=== PATIENT | male | born 1955 | race Caucasian/White ===

== ENCOUNTER → 2016-08-30 | Outpatient (CLI) | payer OTHER, MEDICAID ==
[2012-12-16 15:54] VITALS: BP 112/78
--- NOTE | 2016-08-30 10:39 | RAD ---
HISTORY: Bilateral hip pain Study: Bilateral hips two views each, AP pelvis Comparison: None Findings: the bones are osteopenic. The pelvic bones and SI joints are intact. The hip joints are intact and without erosive changes. There is mild bilateral joint space narrowing likely degenerative in origin . No fracture, lytic, or blastic lesion is identified. IMPRESSION: Mild degenerative joint space narrowing in the hips bilaterally Osteopenia Reported By:
--- NOTE | 2016-08-30 10:41 | RAD ---
HISTORY: Chronic back pain Study: Thoracic spine three view Comparison: None Findings: The bones are osteopenic. The alignment is normal. The vertebral bodies are of average height with t he exception of mild loss of height in T11 age indeterminate. The disc spaces are preserved. The ped icles are intact. The paraspinous soft tissues are normal. IMPRESSION: Osteopenia Mild loss of height in T11 age indeterminate Reported By:
--- NOTE | 2016-08-30 11:01 | RAD ---
HISTORY: Chronic back pain Study: Five views of the lumbar spine Comparison: None Findings: Images demonstrate a central compression deformity of the T12 vertebral body. Otherwise the lumbar v ertebral body heights are relatively maintained. Degenerative facet changes are seen throughout the lumbar spine. Intervertebral disc space narrowing is noted at L5/S1. Minimal multilevel osteophytosi s is also noted. Atherosclerotic changes are seen within the visualized aorta. IMPRESSION: 1. Age-indeterminate compression deformity T12. 2. Multilevel degenerative changes noted above. Reported By:
== END ==
LOC: RAD 09:11
PROVIDERS: ATTEND Family Medicine
DX: G89.4 Chronic pain syndrome (principal); M54.89 Other dorsalgia; M25.551 Pain in right hip; M25.552 Pain in left hip
CPT/HCPCS: 72072; 72110; 73521

== ENCOUNTER → 2017-01-03 | Outpatient (CLI) | payer OTHER, MEDICAID ==
[2012-12-16 15:54] VITALS: BP 112/78
[2017-01-03 15:54] LABS: BASOPHILS # (AUTO) 0.1 X10^3/uL (0.0-0.1); BASOPHILS % (AUTO) 0.9 % (0.2-1.0); EOSINOPHILS # (AUTO) 0.1 x10^3/uL (0.0-0.2); HEMATOCRIT 53.1 % (42.0-54.0); HEMOGLOBIN 18.3 g/dL (13.5-18.0); LYMPHOCYTES # (AUTO) 2.9 X10^3/uL (1.3-2.9); LYMPHOCYTES % (AUTO) 28.6 % (21.0-51.0); MEAN CORPUSCULAR HEMOGLOBIN 30.4 pg (27.0-34.0); MEAN CORPUSCULAR HGB CONC 34.4 g/dL (33.0-35.0); MEAN CORPUSCULAR VOLUME 88.3 fL (80.0-100.0); MONOCYTES # (AUTO) 0.7 x10^3/uL (0.3-0.8); MONOCYTES % (AUTO) 6.4 % (0.0-13.0); NEUTROPHILS # (AUTO) 6.5 x10^3/uL (2.2-4.8); NEUTROPHILS % (AUTO) 63.1 % (42.0-75.0); PLATELET COUNT 229 X10^3/uL (150.0-450.0); RED BLOOD COUNT 6.02 X10^6/uL (4.7-6.0); RED CELL DISTRIBUTION WIDTH 14.4 % (11.6-16.5); WHITE BLOOD COUNT 10.2 X10^3/uL (3.6-10.0)
[2017-01-03 16:09] LABS: ALANINE AMINOTRANSFERASE 146 Units/L (12-78); ALBUMIN 3.4 g/dL (3.4-5.0); ALKALINE PHOSPHATASE 109 Units/L (46-116); ASPARTATE AMINO TRANSFERASE 100 Units/L (15-37); BILIRUBIN,DIRECT 0.11 mg/dL (0-0.2); BLOOD UREA NITROGEN 11 mg/dL (7-18); CARBON DIOXIDE 32.4 mmol/L (21-32); CHLORIDE 101 mmol/L (98-107); COR NA(FOR HYPERGLY) 139 mmol/L (136-145); CREATININE 0.86 mg/dL (0.70-1.30); GLUCOSE 120 mg/dL (65-99); SODIUM 139 mmol/L (136-145); TOTAL PROTEIN 7.6 g/dL (6.4-8.2); eGFR BLACK RACES > 60 (>60); eGFR NON BLACK RACES > 60 (>60)
[2017-01-07 21:38] LABS: HEPATITIS A ANTIBODY IGM Negative (Negative)
[2017-01-09 06:18] LABS: HEPATITIS B CORE IGM Negative (Negative); HEPATITIS B SURFACE ANTIGEN Negative (Negative)
[2017-01-09 06:19] LABS: HCV VIRAL LOG 6.4 log IU
== END ==
LOC: LAB 15:30
PROVIDERS: ATTEND Internal Medicine Gastroenterology
DX: B18.2 Chronic viral hepatitis C (principal)
CPT/HCPCS: 36415; 80048; 80074; 80076; 85025; 87522; 87902

== ENCOUNTER 2017-01-26 11:27 | Day surgery (SDC) | payer OTHER, MEDICAID ==
[2017-01-26] MEDS ORDERED: D5 LR 1000 ML 1,000 ML IV ONE (11:39)
[2017-01-26] MEDS ORDERED: DIPRIVAN VIAL 20 ML ONE (12:37)
[2017-01-26 13:30] VITALS: BP 100/60
== END 2017-01-26 13:15 | disposition home or self-care (01) ==
LOC: SURG1 11:27
PROVIDERS: ATTEND Internal Medicine Gastroenterology
PROC: 0DJ08ZZ Inspection of Upper Intestinal Tract, Via Natural or Artificial Opening Endoscopic (ICD-10-PCS; principal; 2017-01-26 15:45)
PROC: 0DB68ZX Excision of Stomach, Via Natural or Artificial Opening Endoscopic, Diagnostic (ICD-10-PCS; principal; 2017-01-26 15:45)
DX: Z87.19 Personal history of other diseases of the digestive system (principal); B18.2 Chronic viral hepatitis C; K21.9 Gastro-esophageal reflux disease without esophagitis; R11.0 Nausea; R10.13 Epigastric pain; K20.8 Other esophagitis; K29.60 Other gastritis without bleeding; R10.84 Generalized abdominal pain
CPT/HCPCS: A4217; J3490; J7120

== ENCOUNTER 2017-02-02 09:47 | Day surgery (SDC) | payer OTHER, MEDICAID ==
[2017-02-02] MEDS ORDERED: D5 LR 1000 ML 1,000 ML IV ONE (10:16)
[2017-02-02] MEDS ORDERED: DIPRIVAN VIAL 20 ML ONE (12:10)
[2017-02-02] MEDS ORDERED: DIPRIVAN VIAL 10 ML ONE (12:29)
[2017-02-02 13:08] VITALS: BP 114/65
== END 2017-02-02 13:07 | disposition home or self-care (01) ==
LOC: SURG1 09:47
PROVIDERS: ATTEND Internal Medicine Gastroenterology
PROC: 0DJD8ZZ Inspection of Lower Intestinal Tract, Via Natural or Artificial Opening Endoscopic (ICD-10-PCS; principal; 2017-02-02 14:45)
PROC: 0DBE8ZX Excision of Large Intestine, Via Natural or Artificial Opening Endoscopic, Diagnostic (ICD-10-PCS; principal; 2017-02-02 14:45)
PROC: 0DBL8ZX Excision of Transverse Colon, Via Natural or Artificial Opening Endoscopic, Diagnostic (ICD-10-PCS; principal; 2017-02-02 14:45)
PROC: 0DBK8ZX Excision of Ascending Colon, Via Natural or Artificial Opening Endoscopic, Diagnostic (ICD-10-PCS; principal; 2017-02-02 14:45)
PROC: 0DBM8ZX Excision of Descending Colon, Via Natural or Artificial Opening Endoscopic, Diagnostic (ICD-10-PCS; principal; 2017-02-02 14:45)
PROC: 0DBP8ZX Excision of Rectum, Via Natural or Artificial Opening Endoscopic, Diagnostic (ICD-10-PCS; principal; 2017-02-02 14:45)
DX: Z12.11 Encounter for screening for malignant neoplasm of colon (principal); K63.5 Polyp of colon; K64.0 First degree hemorrhoids; D12.4 Benign neoplasm of descending colon; D12.3 Benign neoplasm of transverse colon; D12.6 Benign neoplasm of colon, unspecified; D12.2 Benign neoplasm of ascending colon
CPT/HCPCS: A4217; J3490; J7120

== ENCOUNTER 2017-02-08 10:34 | Outpatient (CLI) | payer OTHER, MEDICAID ==
[2017-02-08 11:08] LABS: BASOPHILS # (AUTO) 0.1 X10^3/uL (0.0-0.1); BASOPHILS % (AUTO) 0.9 % (0.2-1.0); EOSINOPHILS % (AUTO) 0.4 % (0.9-2.9); HEMATOCRIT 52.1 % (42.0-54.0); HEMOGLOBIN 18.2 g/dL (13.5-18.0); LYMPHOCYTES # (AUTO) 2.8 X10^3/uL (1.3-2.9); MEAN CORPUSCULAR HEMOGLOBIN 31.1 pg (27.0-34.0); MEAN CORPUSCULAR HGB CONC 34.9 g/dL (33.0-35.0); MEAN CORPUSCULAR VOLUME 89.1 fL (80.0-100.0); MEAN PLATELET VOLUME 8.2 fL (7.4-11.0); MONOCYTES # (AUTO) 0.5 x10^3/uL (0.3-0.8); MONOCYTES % (AUTO) 4.6 % (0.0-13.0); NEUTROPHILS # (AUTO) 6.7 x10^3/uL (2.2-4.8); NEUTROPHILS % (AUTO) 66.1 % (42.0-75.0); PLATELET COUNT 268 X10^3/uL (150.0-450.0); RED BLOOD COUNT 5.85 X10^6/uL (4.7-6.0); RED CELL DISTRIBUTION WIDTH 14.3 % (11.6-16.5); WHITE BLOOD COUNT 10.1 X10^3/uL (3.6-10.0)
[2017-02-08] MEDS ORDERED: NS 500 ML IV 500 ML IV ONE (11:24)
[2017-02-08 11:26] LABS: ALBUMIN 3.6 g/dL (3.4-5.0); ASPARTATE AMINO TRANSFERASE 81 Units/L (15-37); BLOOD UREA NITROGEN 7 mg/dL (7-18); CALCIUM 9.5 mg/dL (8.5-10.1); CHLORIDE 103 mmol/L (98-107); CREATININE 0.94 mg/dL (0.70-1.30); GLUCOSE 107 mg/dL (65-99); SODIUM 138 mmol/L (136-145); eGFR BLACK RACES > 60 (>60); eGFR NON BLACK RACES > 60 (>60)
--- NOTE | 2017-02-08 11:26 | US ---
Indication: Hepatitis-C. Exam: Liver ultrasound . Technique: Transverse and longitudinal grayscale and color Doppler images were obtained of the liver . Findings: The liver is normal size and echogenicity. No focal lesion is seen. There is hepatopetal fl ow in the portal vein and visualized hepatic veins and IVC are unremarkable. The common bile duct mayuri sures 4 mm. There is no intrahepatic ductal dilatation. The visualized portions of the gallbladder an d right kidney are grossly unremarkable. Impression: No abnormality seen. Reported By:
[2017-02-08 11:38] LABS: ALANINE AMINOTRANSFERASE 98 Units/L (12-78); ALKALINE PHOSPHATASE 81 Units/L (46-116); CARBON DIOXIDE 31.5 mmol/L (21-32); TOTAL PROTEIN 7.9 g/dL (6.4-8.2)
[2017-02-08 14:09] VITALS: BP 125/73
--- NOTE | 2017-02-09 09:39 | CT ---
CT guided liver biopsy Indication: Chronic hepatitis-C. Evaluate liver. Technique: After discussion of risks and benefits, consent was obtained. Time-out was performed. Davida salvador images were then performed through the abdomen and pelvis with a grade in position. Coronal and s agittal reformats provided. A armani was placed on the skin. The patient is prepped and draped in usual sterile fashion. Local anesthetic applied . Anesthesia was present for conscious sedation. Monopty 1 9 gauge 11 mm core specimens were obtained in the left lobe of the liver under CT fluoroscopic guidan ce. 3 core specimens were obtained and submitted to pathology. Patient tolerated procedure well. Foll owup helical imaging was obtained through the liver. Findings: Limited images through the chest show COPD change and Coronary artery calcifications. Revie w of bone windows shows spine degenerative change without destructive osseous lesion. Abdomen: The spleen, pancreas, adrenal glands, and right kidney are normal. There is exophytic small hyperdense left renal lesion on axial image 45, possibly a hyperdense cyst but technically indetermin ate. Vascular plaque noted. Liver is borderline fatty, and borderline cirrhotic in configuration with enlarged caudate to right lobe ratio. No large lesion seen within limits of a noncontrast study. Sma ll bowel and colon show no acute abnormality. Small fat containing umbilical hernia noted. Gallbladde r is collapsed. Pelvis: Urinary bladder and rectum are normal. Prostate gland shows no acute abnormality. Appendix not seen without right lower quadrant inflammatory process noted. Postprocedural images demonstrate no large hematoma. Impression: 1. Successful liver biopsy under CT guidance without complication. 2. Borderline cirrhotic/fatty liver as described above. 3. Left renal hyperdensity is indeterminate technically, and should be followed up with ultrasound to exclude neoplasia. Reported By:
== END 2017-02-08 15:00 | disposition home or self-care (01) ==
LOC: RAD 10:34
PROVIDERS: ATTEND Internal Medicine Gastroenterology
PROC: 0FB03ZX Excision of Liver, Percutaneous Approach, Diagnostic (ICD-10-PCS; principal; 2017-02-08)
DX: B18.2 Chronic viral hepatitis C (principal); E78.00 Pure hypercholesterolemia, unspecified; M13.89 Other specified arthritis, multiple sites
CPT/HCPCS: 36415; 76705; 77012; 80053; 85025; 85610; 85730; A4222

== ENCOUNTER → 2017-05-02 | Outpatient (CLI) | payer OTHER, MEDICAID ==
[2017-05-02 12:45] LABS: BASOPHILS # (AUTO) 0.1 X10^3/uL (0.0-0.1); BASOPHILS % (AUTO) 0.9 % (0.2-1.0); EOSINOPHILS # (AUTO) 0.1 x10^3/uL (0.0-0.2); HEMATOCRIT 55.2 % (42.0-54.0); HEMOGLOBIN 18.9 g/dL (13.5-18.0); LYMPHOCYTES # (AUTO) 3.1 X10^3/uL (1.3-2.9); MEAN CORPUSCULAR HEMOGLOBIN 30.2 pg (27.0-34.0); MEAN CORPUSCULAR HGB CONC 34.3 g/dL (33.0-35.0); MEAN CORPUSCULAR VOLUME 88.1 fL (80.0-100.0); MEAN PLATELET VOLUME 7.8 fL (7.4-11.0); MONOCYTES # (AUTO) 0.7 x10^3/uL (0.3-0.8); MONOCYTES % (AUTO) 6.1 % (0.0-13.0); PLATELET COUNT 252 X10^3/uL (150.0-450.0); RED BLOOD COUNT 6.27 X10^6/uL (4.7-6.0); RED CELL DISTRIBUTION WIDTH 13.3 % (11.6-16.5); WHITE BLOOD COUNT 10.9 X10^3/uL (3.6-10.0)
[2017-05-02 12:57] LABS: BILIRUBIN,URINE NEGATIVE (NEGATIVE); BLOOD/HEMOGLOBIN,URINE 1+ (NEGATIVE); GLUCOSE, URINE NEGATIVE (NEGATIVE); KETONES,URINE NEGATIVE (NEGATIVE); LEUKOCYTE ESTERASE ,URINE 1+ (NEGATIVE); NITRITES,URINE NEGATIVE (NEGATIVE); PROTEIN,URINE NEGATIVE (NEGATIVE); UROBILINOGEN,URINE 1+ (NORMAL)
[2017-05-02 13:02] LABS: APPEARANCE,URINE CLEAR (CLEAR); BACTERIA,URINE NEGATIVE /HPF (NEGATIVE); COLOR,URINE YELLOW (YELLOW); RBC,URINE 0-2 /HPF (NEGATIVE); SQUAMOUS EPITHELIAL CELL,UR NEGATIVE /HPF (NEGATIVE)
[2017-05-02 13:03] LABS: CREATININE,URINE 163.62 mg/dL (40-278); MICROALBUM/CREATININE RATIO,UR 4 mg/g cre (0-29); MICROALBUMIN,URINE 6.8 mg/L
[2017-05-02 13:34] LABS: TOTAL PSA 0.87 ng/mL (0.13-4.0)
[2017-05-02 14:53] LABS: ALANINE AMINOTRANSFERASE 35 Units/L (12-78); ALBUMIN 3.9 g/dL (3.4-5.0); ALKALINE PHOSPHATASE 105 Units/L (46-116); ASPARTATE AMINO TRANSFERASE 34 Units/L (15-37); BILIRUBIN,DIRECT 0.13 mg/dL (0-0.2); BLOOD UREA NITROGEN 4 mg/dL (7-18); CHLORIDE 98 mmol/L (98-107); CHOL/HDL RATIO 2.2 (0.0-5.0); CHOLESTEROL 131 mg/dL (0-200); CREATININE 0.94 mg/dL (0.70-1.30); FREE T4 (FREE THYROXINE) 1.32 ng/dL (0.76-1.46); HDL CHOLESTEROL 59 mg/dL (40-60); MAGNESIUM 2.1 mg/dL (1.7-2.9); SODIUM 136 mmol/L (136-145); TOTAL PROTEIN 8.4 g/dL (6.4-8.2); URIC ACID 7.3 mg/dL (3.5-7.2); eGFR BLACK RACES > 60 (>60); eGFR NON BLACK RACES > 60 (>60)
[2017-05-02 23:14] LABS: CARBON DIOXIDE 26.9 mmol/L (21-32)
[2017-05-03 00:08] LABS: CALCIUM 10.1 mg/dL (8.5-10.1); TRIGLYCERIDES 103 mg/dL (0-150)
== END ==
LOC: LAB 11:57
PROVIDERS: ATTEND Internal Medicine Gastroenterology
DX: B18.2 Chronic viral hepatitis C (principal); G47.09 Other insomnia; G89.4 Chronic pain syndrome; F41.8 Other specified anxiety disorders; E78.4 Other hyperlipidemia; K21.9 Gastro-esophageal reflux disease without esophagitis
CPT/HCPCS: 36415; 80048; 80061; 80076; 81001; 82043; 82607; 82746; 83735; 84153; 84439; 84443; 84550; 85025

== ENCOUNTER 2017-05-12 17:54 | Emergency (ER) | payer OTHER, MEDICAID ==
[2017-05-12 18:04] VITALS: BP 119/84; BMI 22.6
--- NOTE | 2017-05-12 18:14 | DR.GENAD ---
HPI - PCP Primary Care Physician: ping - Complaint/Symptoms Chief Complaint Doctors Comments: Patient admits to heart burn for one day, denies history of cardiopulmonary disease Chief Complaint:: pt states" i had heartburn the other night and i'm still hurting from it my doctor was suppose to call me in some med but she didn't" - Source History Provided: Patient - Mode of Arrival Mode of Arrival: Ambulatory - Timing Onset of Chief Complaint: 05/09/17 PMH - PMH Past Medical History: Yes Past Medical History: CVA, Liver Disease Past Medical History Comment: hep-c cirrhosis of the liver Past Surgical History: Yes Surgical History: Appendectomy Past Surgical History Comment: brain - Family History History of Family Medical Conditions: Yes Family Medical History: [place], Coronary Artery Disease - Social History Type of Tobacco Use: Cigarettes Alcohol Use: Occasionally Do you use any recreational Drugs:: No Lives With: Family Lives Where: Home - infectious screening In the last 2 months have you had wt loss of >10#?: NO Have you had fever, night sweats or hemotysis?: No Have you traveled outside the country in the last 6 months?: No Isolation: Standard ROS - Review of Systems Constitutional: negative: Diaphoresis Eyes: No Symptoms Reported ENTM: No Symptoms Reported Respiratoy: No Symptoms Reported Cardiovascular: No Symptoms Reported Gastrointestinal/Abdominal: No Symptoms Reported Genitourinary: No Symptoms Reported Neurological: No Symptoms Reported Musculoskeletal: No Symptoms Reported Integumentary: No Symptoms Reported Hematologic/Lymphatic: No Symptoms Reported Endocrine: No Symptoms Reported Psychiatric: No Symptoms Reported All Other Systems: Reviewed and Negative PE - Vital Signs Vitals: Temperature 97.2 F Pulse Rate 81 Respiratory Rate 18 Blood Pressure [Left Arm] 125/73 Blood Pressure [Right Radial 112/78 Artery] Blood Pressure 119/84 O2 Sat by Pulse Oximetry 97 - General Limitations: No Limitations General Appearance: Alert, In No Apparent Distress - Head Head Exam: Normal Inspection, Atraumatic - Eyes Eye exam: Normal Appearance, PERRL, EOMI - ENT ENT Exam: Normal Exam External Ear Exam: Normal External Inspection TM/Canal Exam: Bilateral Normal Nose Exam: Normal Nose Exam Mouth Exam: Normal Inspection, Trismus - Neck Neck Exam: Normal Inspection - Chest Chest Inspection: Normal Inspection - Respiratory Respiratory Exam: Normal Lung Sounds Bilat Respiratory Exam: Bilateral Clear to Auscultation - Cardiovascular Cardiovascular Exam: Regular Rate, Normal Rhythm - Abdominal Exam Abdominal Exam: Normal Inspection Abdominal Tenderness: negative: RUQ, RLQ, LUQ, LLQ, Epigastrium, Suprapubic, Diffuse, Mild, Moderate, Severe, Other - Extremities Extremities Exam: Normal Inspection, Full ROM - Back Back Exam: Normal Inspection, Full ROM - Neurologic Neurological Exam: Alert, Oriented X3, CN II-XII Intact - Psychiatric Psychiatric Exam: Normal Affect, Normal Mood - Skin Skin Exam: Warm, Dry, Intact ROR - Labs Reviewed Result Diagrams: 05/12/17 18:25 05/12/17 18:25 Laboratory: WBC 10.2 X10^3/uL (3.6-10.0) H 05/12/17 18:25 RBC 6.01 X10^6/uL (4.7-6.0) H 05/12/17 18:25 Hgb 18.2 g/dL (13.5-18.0) H 05/12/17 18:25 Hct 52.6 % (42.0-54.0) 05/12/17 18:25 MCV 87.6 fL (80.0-100.0) 05/12/17 18:25 MCH 30.3 pg (27.0-34.0) 05/12/17 18:25 MCHC 34.7 g/dL (33.0-35.0) 05/12/17 18:25 RDW 13.7 % (11.6-16.5) 05/12/17 18:25 Plt Count 268 X10^3/uL (150.0-450.0) 05/12/17 18:25 MPV 7.9 fL (7.4-11.0) 05/12/17 18:25 Neut % 48.5 % (42.0-75.0) 05/12/17 18:25 Lymph % 40.8 % (21.0-51.0) 05/12/17 18:25 [place] % 7.8 % (0.0-13.0) 05/12/17 18:25 Eos % 1.7 % (0.9-2.9) 05/12/17 18:25 Baso % 1.2 % (0.2-1.0) H 05/12/17 18:25 Neut # 4.9 x10^3/uL (2.2-4.8) H 05/12/17 18:25 Lymph # 4.2 X10^3/uL (1.3-2.9) H 05/12/17 18:25 [place] # 0.8 x10^3/uL (0.3-0.8) 05/12/17 18:25 Eos # 0.2 x10^3/uL (0.0-0.2) 05/12/17 18:25 Baso # 0.1 X10^3/uL (0.0-0.1) 05/12/17 18:25 Absolute Nucleated RBC 0.1 /100WBC 05/12/17 18:25 INR Target Range - 05/12/17 18:25 INR 0.98 (0.8-1.3) 05/12/17 18:25 PTT 26.8 SECONDS (22.9-36.5) 05/12/17 18:25 PTT Comment - 05/12/17 18:25 Sodium 138 mmol/L (136-145) 05/12/17 18:25 Corrected Sodium TNP 05/12/17 18:25 Potassium 4.3 mmol/L (3.5-5.1) 05/12/17 18:25 Chloride 101 mmol/L (98-107) 05/12/17 18:25 Carbon Dioxide 28.9 mmol/L (21-32) 05/12/17 18:25 BUN 8 mg/dL (7-18) 05/12/17 18:25 Creatinine 0.95 mg/dL (0.70-1.30) 05/12/17 18:25 Est GFR (MDRD) Af Amer > 60 (>60) 05/12/17 18:25 Est GFR (MDRD) Non-Af > 60 (>60) 05/12/17 18:25 Glucose 103 mg/dL (65-99) H 05/12/17 18:25 Calcium 9.3 mg/dL (8.5-10.1) 05/12/17 18:25 Corrected Calcium TNP 05/12/17 18:25 Magnesium 2.0 mg/dL (1.7-2.9) 05/12/17 18:25 Total Bilirubin 0.50 mg/dL (0.2-1.0) 05/12/17 18:25 AST 29 Units/L (15-37) 05/12/17 18:25 ALT 53 Units/L (12-78) 05/12/17 18:25 Alkaline Phosphatase 94 Units/L (46-116) 05/12/17 18:25 Total Protein 7.7 g/dL (6.4-8.2) 05/12/17 18:25 Albumin 3.8 g/dL (3.4-5.0) 05/12/17 18:25 Globulin 3.9 g/dL (2.5-4.5) 05/12/17 18:25 Albumin/Globulin Ratio 1.0 Ratio (1.1-2.1) L 05/12/17 18:25 - Diagnosis Discharge Problem: Heart burn - Discharge Plan Condition: Stable - Follow ups/Referrals Follow ups/Referrals: LEIF BARNHART [Primary Care Provider] - 3 days - Instructions
[2017-05-12 18:38] LABS: BASOPHILS # (AUTO) 0.1 X10^3/uL (0.0-0.1); BASOPHILS % (AUTO) 1.2 % (0.2-1.0); EOSINOPHILS # (AUTO) 0.2 x10^3/uL (0.0-0.2); EOSINOPHILS % (AUTO) 1.7 % (0.9-2.9); HEMATOCRIT 52.6 % (42.0-54.0); HEMOGLOBIN 18.2 g/dL (13.5-18.0); LYMPHOCYTES # (AUTO) 4.2 X10^3/uL (1.3-2.9); LYMPHOCYTES % (AUTO) 40.8 % (21.0-51.0); MEAN CORPUSCULAR HEMOGLOBIN 30.3 pg (27.0-34.0); MEAN CORPUSCULAR HGB CONC 34.7 g/dL (33.0-35.0); MEAN CORPUSCULAR VOLUME 87.6 fL (80.0-100.0); MEAN PLATELET VOLUME 7.9 fL (7.4-11.0); MONOCYTES # (AUTO) 0.8 x10^3/uL (0.3-0.8); MONOCYTES % (AUTO) 7.8 % (0.0-13.0); NEUTROPHILS # (AUTO) 4.9 x10^3/uL (2.2-4.8); NEUTROPHILS % (AUTO) 48.5 % (42.0-75.0); PLATELET COUNT 268 X10^3/uL (150.0-450.0); RED BLOOD COUNT 6.01 X10^6/uL (4.7-6.0); RED CELL DISTRIBUTION WIDTH 13.7 % (11.6-16.5); WHITE BLOOD COUNT 10.2 X10^3/uL (3.6-10.0)
[2017-05-12 18:44] LABS: ALANINE AMINOTRANSFERASE 53 Units/L (12-78); ALBUMIN 3.8 g/dL (3.4-5.0); ALKALINE PHOSPHATASE 94 Units/L (46-116); ASPARTATE AMINO TRANSFERASE 29 Units/L (15-37); BLOOD UREA NITROGEN 8 mg/dL (7-18); CALCIUM 9.3 mg/dL (8.5-10.1); CARBON DIOXIDE 28.9 mmol/L (21-32); CHLORIDE 101 mmol/L (98-107); CREATININE 0.95 mg/dL (0.70-1.30); SODIUM 138 mmol/L (136-145); TOTAL PROTEIN 7.7 g/dL (6.4-8.2); eGFR BLACK RACES > 60 (>60); eGFR NON BLACK RACES > 60 (>60)
[2017-05-12] MEDS ORDERED: NS 1000 ML 1,000 ML IV SCH (19:00)
[2017-05-12] MEDS ORDERED: NS 1000 ML 1,000 ML ONE (19:09)
[2017-05-12] MEDS ORDERED: LEVSIN/MAALOX/LIDOC VISC PO ONE (20:06)
--- NOTE | 2017-05-12 20:59 | RAD ---
HISTORY: Chest pain. Study: Portable chest. Comparison: Chest x-ray dated November 15, 2012. Findings: The trachea is midline. The cardiac silhouette is unremarkable. Chronic interstitial markings appear unchanged. No obvious focal consolidation, pleural effusion, or pneumothorax.. The bony thorax is unremarkable. IMPRESSION: No acute cardiopulmonary disease. Reported By:
== END 2017-05-12 20:29 | disposition home or self-care (01) ==
LOC: ER 18:08
DX: R12 Heartburn (principal)
CPT/HCPCS: 36415; 71010; 80053; 83735; 85025; 85610; 85730; 93005; 93010; 96365; 99283; A4222

== ENCOUNTER → 2017-06-13 | Outpatient (CLI) | payer OTHER, MEDICAID ==
[2017-06-13 15:32] LABS: BASOPHILS # (AUTO) 0.1 X10^3/uL (0.0-0.1); BASOPHILS % (AUTO) 0.6 % (0.2-1.0); EOSINOPHILS # (AUTO) 0.1 x10^3/uL (0.0-0.2); EOSINOPHILS % (AUTO) 0.8 % (0.9-2.9); HEMATOCRIT 53.3 % (42.0-54.0); HEMOGLOBIN 18.4 g/dL (13.5-18.0); LYMPHOCYTES # (AUTO) 3.8 X10^3/uL (1.3-2.9); LYMPHOCYTES % (AUTO) 33.7 % (21.0-51.0); MEAN CORPUSCULAR HGB CONC 34.6 g/dL (33.0-35.0); MEAN CORPUSCULAR VOLUME 86.7 fL (80.0-100.0); MEAN PLATELET VOLUME 8.4 fL (7.4-11.0); MONOCYTES # (AUTO) 0.8 x10^3/uL (0.3-0.8); MONOCYTES % (AUTO) 7.5 % (0.0-13.0); NEUTROPHILS # (AUTO) 6.4 x10^3/uL (2.2-4.8); NEUTROPHILS % (AUTO) 57.4 % (42.0-75.0); PLATELET COUNT 310 X10^3/uL (150.0-450.0); RED BLOOD COUNT 6.15 X10^6/uL (4.7-6.0); RED CELL DISTRIBUTION WIDTH 13.7 % (11.6-16.5); WHITE BLOOD COUNT 11.1 X10^3/uL (3.6-10.0)
[2017-06-13 16:03] LABS: ALBUMIN 3.5 g/dL (3.4-5.0); BILIRUBIN,DIRECT 0.08 mg/dL (0-0.2); TOTAL PROTEIN 8.1 g/dL (6.4-8.2)
== END ==
LOC: LAB 14:23
PROVIDERS: ATTEND Internal Medicine Gastroenterology
DX: B18.2 Chronic viral hepatitis C (principal)
CPT/HCPCS: 36415; 80076; 85025; 87522

== ENCOUNTER → 2017-07-12 | Outpatient (CLI) | payer OTHER, MEDICAID ==
[2017-07-12 12:17] LABS: BASOPHILS # (AUTO) 0.1 X10^3/uL (0.0-0.1); BASOPHILS % (AUTO) 0.8 % (0.2-1.0); EOSINOPHILS # (AUTO) 0.1 x10^3/uL (0.0-0.2); EOSINOPHILS % (AUTO) 1.1 % (0.9-2.9); HEMATOCRIT 53.9 % (42.0-54.0); HEMOGLOBIN 18.7 g/dL (13.5-18.0); LYMPHOCYTES # (AUTO) 4.2 X10^3/uL (1.3-2.9); LYMPHOCYTES % (AUTO) 41.1 % (21.0-51.0); MEAN CORPUSCULAR HGB CONC 34.6 g/dL (33.0-35.0); MEAN CORPUSCULAR VOLUME 86.6 fL (80.0-100.0); MEAN PLATELET VOLUME 7.8 fL (7.4-11.0); MONOCYTES # (AUTO) 0.9 x10^3/uL (0.3-0.8); MONOCYTES % (AUTO) 8.4 % (0.0-13.0); NEUTROPHILS % (AUTO) 48.6 % (42.0-75.0); PLATELET COUNT 303 X10^3/uL (150.0-450.0); RED BLOOD COUNT 6.23 X10^6/uL (4.7-6.0); RED CELL DISTRIBUTION WIDTH 13.7 % (11.6-16.5); WHITE BLOOD COUNT 10.3 X10^3/uL (3.6-10.0)
[2017-07-12 12:26] LABS: ALBUMIN 3.7 g/dL (3.4-5.0); BILIRUBIN,DIRECT 0.13 mg/dL (0-0.2); TOTAL PROTEIN 8.1 g/dL (6.4-8.2)
[2017-07-12 12:56] LABS: CRYPTOSPORIDIUM PARVUM ANTIGEN NEGATIVE (NEGATIVE); GIARDIA LAMBLIA ANTIGEN NEGATIVE (NEGATIVE); STOOL FOR WBC NEGATIVE (NEGATIVE)
[2017-07-18 06:57] LABS: HCV VIRAL LOG <1.2 log IU
== END ==
LOC: LAB 11:40
PROVIDERS: ATTEND Internal Medicine Gastroenterology
DX: B18.2 Chronic viral hepatitis C (principal); K59.1 Functional diarrhea
CPT/HCPCS: 36415; 80076; 82270; 82705; 83630; 85025; 87045; 87328; 87329; 87336; 87427; 87493; 87522; 87899

== ENCOUNTER 2019-12-05 13:54 | Observation (INO) ==
[2019-12-05 14:01] VITALS: BMI 27.9
[2019-12-05] MEDS ORDERED: ASPIRIN 81 MG CHEWTAB ONE (14:09)
[2019-12-05] MEDS ORDERED: ASPIRIN PO ONE (14:09)
--- NOTE | 2019-12-05 14:16 | DR.SOBA ---
HPI Time Seen Time Seen by Provider: 12/05/19 14:04 Primary Care Physician Primary Care Physician: DR LEIF BARNHART HPI Comment HPI Comment: SHOB and cough greater than baseline. Had an episode of BOV, weakness while outside in the heat today. COPD O2 dependent, s/p CVA, had MD 3 months ago and non-adherent to daily ASA. States chest pain is chronic, and points to his left nipple with a finger when localizing. Denies fever, chills. Complaints Chief Complaint:: PT C/O LOW BP AND SHORTNESS OF BREATH ASSOCIATED WITH SOME MILD LEFT SIDED CHEST PAIN RATED 4/10. PT NOTED TO HAVE WHEEZES BILATERALLY. RECEIVING NEB TX UPON ARRIVAL. EMS REPORTED STRIDOR PRIOR TO ARRIVAL. COVID-19 Coronavirus risk:travel/contact w/high risk person: No Has patient experienced Coronavirus symptoms: No Source History Provided: Patient and EMS Mode of Arrival Mode of Arrival: EMS Timing Onset of Chief Complaint: 12/05/19 PMH PMH Past Medical History: Yes Past Medical History: Anxiety, Arthritis, Asthma, COPD, Coronary Artery Disease, CVA, Depression, GERD, Liver Disease and MD Past Surgical History: Yes Surgical History: Angioplasty/Stents and Appendectomy Family History History of Family Medical Conditions: Yes Family Medical History: Diabetes Mellitus, Cancer, MD and Hypertension Social History Does patient currently use any type of tobacco product: Yes Have you used tobacco products in the last 12 months: No Type of Tobacco Use: Cigarettes Does any household member use tobacco: No Alcohol Use: None Do you use any recreational Drugs:: No Lives With: Family Lives Where: Home Travel Risk Coronavirus risk:travel/contact w/high risk person: No Has patient experienced Coronavirus symptoms: No Infectious screening In the last 2 months have you had wt loss of >10#?: NO Have you had fever, night sweats or hemotysis?: No Have you traveled outside the country in the last 6 months?: No Isolation: [place]/Negative Pressure ROS Review of Systems Constitutional: Weakness Eyes: No Symptoms Reported ENTM: No Symptoms Reported Respiratoy: See HPI Cardiovascular: See HPI Gastrointestinal/Abdominal: No Symptoms Reported Genitourinary: No Symptoms Reported Neurological: No Symptoms Reported Musculoskeletal: No Symptoms Reported Integumentary: No Symptoms Reported Hematologic/Lymphatic: No Symptoms Reported Endocrine: No Symptoms Reported Psychiatric: No Symptoms Reported All Other Systems: Reviewed and Negative PE Vital Signs Vitals: Temperature 97.9 F Pulse Rate 65 Respiratory Rate 22 Blood Pressure [Left Arm] 132/86 Blood Pressure [Right Radial 109/67 Artery] Blood Pressure 94/56 O2 Sat by Pulse Oximetry 91 General Limitations: No Limitations General Appearance: Alert and Lethargic Head Head Exam: Normal Inspection Eyes Eye exam: Normal Appearance ENT ENT Exam: Normal Exam Neck Neck Exam: Normal Inspection Chest Chest Inspection: Normal Inspection and Symmetric Chest Wall Rise Respiratory Respiratory Exam: Other (Harsh lung sounds in all lung michel); negative Normal Lung Sounds Bilat Respiratory Exam: Bilateral: Clear to Auscultation Cardiovascular Cardiovascular Exam: Regular Rate, Normal Rhythm and Other (1+ BLE pitting edema) Abdominal Exam Abdominal Exam: Normal Inspection, Normal Bowel Sounds and Soft; negative Distention, Tenderness, Guarding, Rebound and Rigidity Extremities Extremities Exam: Normal Inspection Back Back Exam: Normal Inspection Neurologic Neurological Exam: Alert and Oriented X3 Psychiatric Psychiatric Exam: Normal Affect and Normal Mood Skin Skin Exam: Warm, Dry, Intact and Normal Color COURSE Treatment Treatment: Bibasilar infiltrates seen, concerning for PMN +/- Covid. Cultures drawn, Rocephin/Doxy (PO) given. QTc 579 will need continuous cardiac monitoring. Will start pt on low dose Coreg. Discussed with Dr. Christopher will admit for obs for pneumonia and cardiac monitoring. We discussed his prolonged QTc, significantly longer than past EKGs, and I will start low dose carvedilol, and the patient will need a med rec this admission. ROR Labs Reviewed Laboratory Results Reviewed?: Yes Result Diagrams: 12/05/19 14:16 12/05/19 14:16 Laboratory: WBC 7.5 X10^3/uL (3.6-10.0) 12/05/19 14:16 RBC 5.40 X10^6/uL (4.7-6.0) 12/05/19 14:16 Hgb 15.6 g/dL (13.5-18.0) 12/05/19 14:16 Hct 46.5 % (42.0-54.0) 12/05/19 14:16 MCV 86.1 fL (80.0-100.0) 12/05/19 14:16 MCH 28.9 pg (27.0-34.0) 12/05/19 14:16 MCHC 33.6 g/dL (33.0-35.0) 12/05/19 14:16 RDW 14.5 % (11.6-16.5) 12/05/19 14:16 Plt Count 208 X10^3/uL (150.0-450.0) 12/05/19 14:16 MPV 7.7 fL (7.4-11.0) 12/05/19 14:16 Neut % (Auto) 54.3 % (42.0-75.0) 12/05/19 14:16 Lymph % (Auto) 35.5 % (21.0-51.0) 12/05/19 14:16 [place] % (Auto) 8.4 % (0.0-13.0) 12/05/19 14:16 Eos % (Auto) 1.2 % (0.9-2.9) 12/05/19 14:16 Baso % (Auto) 0.6 % (0.2-1.0) 12/05/19 14:16 Neut # (Auto) 4.1 x10^3/uL (2.2-4.8) 12/05/19 14:16 Lymph # (Auto) 2.7 X10^3/uL (1.3-2.9) 12/05/19 14:16 [place] # (Auto) 0.6 x10^3/uL (0.3-0.8) 12/05/19 14:16 Eos # (Auto) 0.1 x10^3/uL (0.0-0.2) 12/05/19 14:16 Baso # (Auto) 0.0 X10^3/uL (0.0-0.1) 12/05/19 14:16 Absolute Nucleated RBC 0.0 /100WBC 12/05/19 14:16 Sample Site Rb 12/05/19 14:15 ABG pH 7.430 (7.35-7.45) 12/05/19 14:15 ABG pCO2 40.0 mmHg (35.0-45.0) 12/05/19 14:15 ABG pO2 63.0 mmHg (80.0-100.0) L 12/05/19 14:15 ABG HCO3 26.5 mmol/L (22-26) H 12/05/19 14:15 ABG O2 Saturation 92.0 % (90-100) 12/05/19 14:15 ABG Base Excess 2.0 mmol/L (-2.0-2.0) 12/05/19 14:15 Benji Test Na 12/05/19 14:15 A-a Gradient 115.0 mmHg 12/05/19 14:15 FiO2 32.0 12/05/19 14:15 Blood Gas Comments Pt jay well. cdn 12/05/19 14:15 Sodium 132 mmol/L (136-145) L 12/05/19 14:16 Corrected Sodium 133 mmol/L (136-145) L 12/05/19 14:16 Potassium 4.2 mmol/L (3.5-5.1) 12/05/19 14:16 Chloride 98 mmol/L (98-107) 12/05/19 14:16 Carbon Dioxide 26.9 mmol/L (21-32) 12/05/19 14:16 BUN 8 mg/dL (7-18) 12/05/19 14:16 Creatinine 1.41 mg/dL (0.70-1.30) H 12/05/19 14:16 Est GFR (MDRD) Af Amer > 60 (>60) 12/05/19 14:16 Est GFR (MDRD) Non-Af 54 (>60) L 12/05/19 14:16 Glucose 139 mg/dL (65-99) H 12/05/19 14:16 Lactic Acid 1.6 mmol/L (0.4-2.0) 12/05/19 15:05 Calcium 9.0 mg/dL (8.5-10.1) 12/05/19 14:16 Corrected Calcium TNP 12/05/19 14:16 Magnesium 2.0 mg/dL (1.7-2.9) 12/05/19 14:16 Total Bilirubin 0.50 mg/dL (0.2-1.0) 12/05/19 14:16 AST 26 Units/L (15-37) 12/05/19 14:16 ALT 25 Units/L (12-78) 12/05/19 14:16 Alkaline Phosphatase 63 Units/L (46-116) 12/05/19 14:16 Creatine Kinase 96 Units/L (39-308) 12/05/19 14:16 CK-MB (CK-2) 1.5 ng/mL (0-4.0) 12/05/19 14:16 CK/CKMB % Calc 1.6 % (<4) 12/05/19 14:16 Troponin I < 0.02 ng/mL (0-1.5) 12/05/19 14:16 B-Natriuretic Peptide 112 pg/mL (0-79) H 12/05/19 14:16 Total Protein 7.3 g/dL (6.4-8.2) 12/05/19 14:16 Albumin 3.4 g/dL (3.4-5.0) 12/05/19 14:16 Globulin 3.9 g/dL (2.5-4.5) 12/05/19 14:16 Albumin/Globulin Ratio 0.9 Ratio (1.1-2.1) L 12/05/19 14:16 Influenza Type A Ag Negative-presumptive (NEGATIVE) 12/05/19 14:10 Influenza Type B Ag Negative-presumptive (NEGATIVE) 12/05/19 14:10 XRAY XRAY Interpreted by: Radiologist and Self X-ray Results: Bibasilar lung opacities observed EKG [place]: Normal Rhythm: NSR Block: None Hypertrophy: None ST: Normal Opioid Opioid Risk Tool Age (Sae box if 16-45): No History of Preadolescent Sexual Abuse: No Total: 0 Total Score Risk Category: Low Risk Copyright: Douglas LR predicting aberrant behaviors Diagnosis Discharge Problem: Prolonged QT interval Bilateral pneumonia Qualifiers: Pneumonia type: due to unspecified organism Lung location: lower lobe of lung Qualified Code(s): J18.9 - Pneumonia, unspecified organism
[2019-12-05 14:25] LABS: ABG HCO3 26.5 mmol/L (22-26)
[2019-12-05 14:28] LABS: BASOPHILS % (AUTO) 0.6 % (0.2-1.0); EOSINOPHILS # (AUTO) 0.1 x10^3/uL (0.0-0.2); EOSINOPHILS % (AUTO) 1.2 % (0.9-2.9); HEMATOCRIT 46.5 % (42.0-54.0); HEMOGLOBIN 15.6 g/dL (13.5-18.0); LYMPHOCYTES # (AUTO) 2.7 X10^3/uL (1.3-2.9); LYMPHOCYTES % (AUTO) 35.5 % (21.0-51.0); MEAN CORPUSCULAR HEMOGLOBIN 28.9 pg (27.0-34.0); MEAN CORPUSCULAR HGB CONC 33.6 g/dL (33.0-35.0); MEAN CORPUSCULAR VOLUME 86.1 fL (80.0-100.0); MEAN PLATELET VOLUME 7.7 fL (7.4-11.0); MONOCYTES # (AUTO) 0.6 x10^3/uL (0.3-0.8); MONOCYTES % (AUTO) 8.4 % (0.0-13.0); NEUTROPHILS # (AUTO) 4.1 x10^3/uL (2.2-4.8); NEUTROPHILS % (AUTO) 54.3 % (42.0-75.0); PLATELET COUNT 208 X10^3/uL (150.0-450.0); RED CELL DISTRIBUTION WIDTH 14.5 % (11.6-16.5); WHITE BLOOD COUNT 7.5 X10^3/uL (3.6-10.0)
--- NOTE | 2019-12-05 14:37 | RAD ---
HISTORYSOB, HYPOTENSIONSTUDYCHEST, 1 [id number] trachea is midline. The cardiac silhouette is unremarkable. Mild prominence of perihilar and infrahilar interstitial opacities, which may be seen with interstitial edema versus infiltrates. Low lung volume with mild bibasilar atelectasis versus infiltrates.. The bony thorax is stable.IMPRESSIONLow lung volume with mild bibasilar atelectasis versus infiltrates.Mild increase in perihilar and infrahilar interstitial opacities, which may be seen with interstitial edema versus infiltrates.Electronically signed by: Marina Singh (Dec 05, 2019 14:36:27)
[2019-12-05 14:47] LABS: ALANINE AMINOTRANSFERASE 25 Units/L (12-78); ALBUMIN 3.4 g/dL (3.4-5.0); ALKALINE PHOSPHATASE 63 Units/L (46-116); ASPARTATE AMINO TRANSFERASE 26 Units/L (15-37); BLOOD UREA NITROGEN 8 mg/dL (7-18); CARBON DIOXIDE 26.9 mmol/L (21-32); CHLORIDE 98 mmol/L (98-107); CKMB % 1.6 % (<4); COR NA(FOR HYPERGLY) 133 mmol/L (136-145); CREATINE KINASE 96 Units/L (39-308); CREATINE KINASE MB 1.5 ng/mL (0-4.0); CREATININE 1.41 mg/dL (0.70-1.30); SODIUM 132 mmol/L (136-145); TOTAL PROTEIN 7.3 g/dL (6.4-8.2); TROPONIN I < 0.02 ng/mL (0-1.5); eGFR NON BLACK RACES 54 (>60)
[2019-12-05] MEDS ORDERED: VIBRAMYCIN PO ONE ×2 (16:36→17:10)
[2019-12-05] MEDS ORDERED: ROCEPHIN VIAL 2 GRAMS 2 G in NS 100 ML IV + SPIKE MINIBAG* 100 ML IV STA (16:36)
[2019-12-05] MEDS ORDERED: NS 500 ML IV 500 ML IV ONE ×2 (16:50→17:10)
[2019-12-05] MEDS ORDERED: NS 100 ML IV + SPIKE MINIBAG* 100 ML IV ONE (17:10)
[2019-12-05] MEDS ORDERED: ROCEPHIN VIAL 2 GRAMS ONE (17:10)
[2019-12-05] MEDS ORDERED: DUONEB 0.5 MG/3 MG (3 mL) NEB PRN (18:32)
[2019-12-05] MEDS ORDERED: ROCEPHIN VIAL 2 GRAMS 2 G in NS 100 ML IV + SPIKE MINIBAG* 100 ML IV SCH (21:00)
[2019-12-05] MEDS: COREG TAB 3.125 MG PO SCH (21:08)
[2019-12-05] MEDS: LIPITOR TAB 40 MG PO SCH (21:08)
[2019-12-05] MEDS: BRILINTA PO SCH (21:08)
[2019-12-05] MEDS: DIOVAN TAB 160 MG PO SCH ×2 (21:09→21:10)
[2019-12-05] MEDS: ZITHROMAX INJ 500 MG VIAL 500 MG in NS 250 ML IV 250 ML IV SCH (23:37)
[2019-12-06 00:54] LABS: BILIRUBIN,URINE NEGATIVE (NEGATIVE); BLOOD/HEMOGLOBIN,URINE 1+ (NEGATIVE); GLUCOSE, URINE NEGATIVE (NEGATIVE); KETONES,URINE NEGATIVE (NEGATIVE); LEUKOCYTE ESTERASE ,URINE NEGATIVE (NEGATIVE); NITRITES,URINE NEGATIVE (NEGATIVE); PH,URINE 6.5 (5.0 - 8.0); PROTEIN,URINE NEGATIVE (NEGATIVE); UROBILINOGEN,URINE NORMAL (NORMAL)
[2019-12-06 01:15] LABS: APPEARANCE,URINE CLEAR (CLEAR); BACTERIA,URINE TRACE /HPF (NEGATIVE); COLOR,URINE YELLOW (YELLOW); RBC,URINE NONE SEEN /HPF (0-3); SQUAMOUS EPITHELIAL CELL,UR MODERATE /HPF (NEGATIVE)
[2019-12-06 06:18] LABS: BASOPHILS % (AUTO) 0.7 % (0.2-1.0); EOSINOPHILS # (AUTO) 0.1 x10^3/uL (0.0-0.2); EOSINOPHILS % (AUTO) 1.6 % (0.9-2.9); HEMATOCRIT 44.8 % (42.0-54.0); HEMOGLOBIN 15.1 g/dL (13.5-18.0); LYMPHOCYTES # (AUTO) 2.7 X10^3/uL (1.3-2.9); LYMPHOCYTES % (AUTO) 39.7 % (21.0-51.0); MEAN CORPUSCULAR HEMOGLOBIN 29.1 pg (27.0-34.0); MEAN CORPUSCULAR HGB CONC 33.6 g/dL (33.0-35.0); MEAN CORPUSCULAR VOLUME 86.5 fL (80.0-100.0); MONOCYTES # (AUTO) 0.7 x10^3/uL (0.3-0.8); MONOCYTES % (AUTO) 10.8 % (0.0-13.0); NEUTROPHILS # (AUTO) 3.2 x10^3/uL (2.2-4.8); NEUTROPHILS % (AUTO) 47.2 % (42.0-75.0); PLATELET COUNT 217 X10^3/uL (150.0-450.0); RED BLOOD COUNT 5.18 X10^6/uL (4.7-6.0); RED CELL DISTRIBUTION WIDTH 14.8 % (11.6-16.5); WHITE BLOOD COUNT 6.7 X10^3/uL (3.6-10.0)
[2019-12-06 06:30] LABS: ALANINE AMINOTRANSFERASE 22 Units/L (12-78); ALBUMIN 2.9 g/dL (3.4-5.0); ALKALINE PHOSPHATASE 55 Units/L (46-116); ASPARTATE AMINO TRANSFERASE 21 Units/L (15-37); BLOOD UREA NITROGEN 8 mg/dL (7-18); CALCIUM 8.9 mg/dL (8.5-10.1); CARBON DIOXIDE 27.7 mmol/L (21-32); CHLORIDE 101 mmol/L (98-107); COR CA(FOR HYPOALB) 9.8 mg/dL (8.5-10.1); CREATININE 1.28 mg/dL (0.70-1.30); MAGNESIUM 1.7 mg/dL (1.7-2.9); SODIUM 135 mmol/L (136-145); TOTAL PROTEIN 6.6 g/dL (6.4-8.2); eGFR NON BLACK RACES > 60 (>60)
[2019-12-06] MEDS ORDERED: VIBRAMYCIN PO SCH (09:00)
[2019-12-06 10:28] LABS: CKMB % 1.8 % (<4); CREATINE KINASE 88 Units/L (39-308); CREATINE KINASE MB 1.6 ng/mL (0-4.0); TROPONIN I < 0.02 ng/mL (0-1.5)
[2019-12-06] MEDS: COREG TAB 3.125 MG PO SCH ×2 (10:29→20:43)
[2019-12-06] MEDS: ROCEPHIN VIAL 1 GRAM 1 G in NS 100 ML IV + SPIKE MINIBAG* 100 ML IV SCH (10:29)
[2019-12-06] MEDS: ASPIRIN EC 81 MG PO SCH (10:29)
[2019-12-06] MEDS: BRILINTA PO SCH ×2 (10:29→20:43)
[2019-12-06] MEDS: FLOMAX PO SCH (10:29)
[2019-12-06] MEDS: LASIX IVP SCH ×2 (10:30→16:20)
--- NOTE | 2019-12-06 11:48 | DR.H&P ---
H&P - History & Physical for Day of: H&P Date: 12/05/19 - Chief Complaint Chief Complaint: SOB - History of Present Illness History of Present Illness: PT IS 64 WM ER ADMISSION WITH CO SOB. PT HAS PMH OF COPD, REPORTS HE NEEDS A NEW HOSE FOR HIS NEBULIZER. PT DENIES ANY HX OF CAD. PT HAD HTN, GERD AND OA. PT ALSO HAS HX OF CVA. PT EVALUATED IN ER. ADMITTED FOR COPD EXACERBATION WITH R/O COVID PNEUMONIA. RAPID COVID IN ER NEGATIVE - Past Medical History Past Medical History: [place], Coronary Artery Disease, Liver Disease, Depression, Anxiety, CVA, COPD, Asthma, GERD, Arthritis - Past Surgical History Surgical History: Angioplasty/Stents, Appendectomy - Family History Family Medical History: Diabetes Mellitus, Cancer, [place], Hypertension - Social History Does patient currently use any type of tobacco product: Yes Have you used tobacco products in the last 12 months: Yes Type of Tobacco Use: Cigarettes How many years tobacco product used: 50 Does any household member use tobacco: No Alcohol Use: Occasionally Drug Use: None - Medications Home Medications: morphine Allergy (Verified 08/09/19 15:35) Sulfa (Sulfonamide Antibiotics) [SULFA] Allergy (Verified 08/09/19 15:35) CONTINUE taking the following medications albuterol sulfate 2.5 mg INHALATION Q4H PRN 12/05/19 [History] aspirin 81 mg PO DAILY 12/05/19 [History] atorvastatin 80 mg PO HS 12/05/19 [History] escitalopram oxalate 20 mg PO DAILY 12/05/19 [History] hydrochlorothiazide 12.5 mg PO DAILY 12/05/19 [History] mirabegron [Myrbetriq] 25 mg PO HS 12/05/19 [History] mirtazapine 30 mg PO HS 12/05/19 [History] olmesartan 40 mg PO DAILY 12/05/19 [History] tamsulosin 0.4 mg PO DAILY 12/05/19 [History] ticagrelor [Brilinta] 90 mg PO BID 12/05/19 [History] tizanidine 4 mg PO Q8H PRN 12/05/19 [History] valsartan 160 mg PO BID 12/05/19 [History] - Review of Systems Constitutional: denies: Fever Eyes: No Symptoms Reported ENT: No Symptoms Reported Respiratory: Cough, Shortness of Breath, SOB with Excertion, Wheezing Cardiovascular: denies: Edema Gastrointestinal: Nausea. denies: Abdominal Pain, Diarrhea, Constipation Genitourinary: No Symptoms Reported Musculoskeletal: No Symptoms Reported Skin: No Symptoms Reported Neurological: Change in Speech (CHRONIC) - Physical Exam Vital Signs: Temperature 98.0 F Pulse Rate [Left Radial] 74 Pulse Rate 65 Respiratory Rate 20 Blood Pressure [Right Arm] 105/55 Blood Pressure [Left Arm] 83/45 Blood Pressure [Right Radial 92/53 Artery] Blood Pressure 94/56 O2 Sat by Pulse Oximetry 95 Oriented: Normal Eyes: Normal Ear: Normal Nose: Normal Throat: Normal Respiratory: Rhonchi Throughout, Wheezes Throughout, RLL Diminished, LLL Diminished Cardiovascular: Normal. negative: Edema : Normal Auscultation: Bowel Sounds: Normal Palpation: Normal Tenderness: Normal Skin: Normal Musculoskeletal: Normal Psychiatric: Anxiety Affect: Anxious Speech Pattern: Appropriate, Slurred (MILD, CHRONIC FINDING) - Assessment/Plan (1) SOB (shortness of breath) Status: Acute Plan: ADMIT, CE AND EKG. SUPPLEMENTAL O2. COVID 19 ON ADMISSION, IV ATBX, BP CONTROL. VERIFY HOME MEDICATION, STRICT I &OS. TELEMETRY, DUO NEBS (2) COPD exacerbation Status: Acute (3) Hypotension Qualifiers: Hypotension type: unspecified hypotension type Qualified Code(s): I95.9 - Hypotension, unspecified Status: Acute (4) Pulmonary vascular congestion Status: Acute - Allergies Allergies/Adverse Reactions: Allergies Allergy/AdvReac Type Severity Reaction Status Date / Time morphine Allergy Verified 08/09/19 15:35 Sulfa (Sulfonamide Allergy Verified 08/09/19 15:35 Antibiotics) [SULFA]
--- NOTE | 2019-12-06 11:54 | PCM.PROG ---
Progress Note - Progress Note for Day of Date of Exam: 12/06/19 - Subjective Subjective: PT IS 64 WM ER ADMISSION WITH CO SOB. PT HAD ABNORMAL CHEST XRAY ON ADMISSION, COVID 19 NEGATIVE. PT DENIES ANY FEVER. PT REPORTS HE HAS HX OF COPD AND STILL DAILY SMOKER. PT REPORTS HE HAS NOT BEEN TO THE DOCTOR FOR A CHECK UP DUE TO ROBLES VIRUS. PT WAS STARTED ON IV ATBX THERAPY ON ADMISSION WITH DUO NEBS. PT REPORTS IMPROVING SOB SINCE RECEIVING BREATHING TREATMENT. PT DENIES ANY CHEST PAIN. PT IS CURRENTLY ON SUPPLEMENTAL O2, CREAT 1.41 ON ADMISSION, 1.28 THIS AM. LASIX IV X 1 DOSE ORDERED FOR THIS AM WITH STRICT I&OS. WE WILL CONTINUE RESP THERAPY AND REPEAT AM LABS. PT CE WERE NEGATIVE, WILL REPEAT IN 6 HRS FOR STABLITY. - Past Medical Family Social History Past Med/Fam/Surg Hx: No changes since H&P Allergies: Allergies morphine Allergy (Verified 08/09/19 15:35) Sulfa (Sulfonamide Antibiotics) [SULFA] Allergy (Verified 08/09/19 15:35) - Review of Systems ROS: No change since H&P - Vital Signs and I&O's Vital Signs: Temperature 98.0 F Pulse Rate [Left Radial] 74 Pulse Rate 65 Respiratory Rate 20 Blood Pressure [Right Arm] 105/55 Blood Pressure [Left Arm] 83/45 Blood Pressure [Right Radial 92/53 Artery] Blood Pressure 94/56 O2 Sat by Pulse Oximetry 95 Intake and Output: Intake & Output 12/03/19 12/04/19 12/05/19 12/06/19 11:59 11:59 11:59 11:59 Intake Total 320 / 320 Balance 320 / 320 - Physical Exam Oriented: Normal Eyes: Normal Ear: Normal Nose: Normal Throat: Normal Respiratory: Diminished, Wheezes Cardiovascular: Normal. negative: Edema : Normal Auscultation: Bowel Sounds: Normal Tenderness: Normal Skin: Normal Musculoskeletal: Normal Psychiatric: Anxiety Affect: Anxious Speech Pattern: Appropriate, Slurred (MILD, CHRONIC FINDING) - Laboratory and Diagnostics Result Diagrams: 12/06/19 05:12 12/06/19 05:12 Labs: Laboratory WBC 6.7 X10^3/uL (3.6-10.0) 12/06/19 05:12 RBC 5.18 X10^6/uL (4.7-6.0) 12/06/19 05:12 Hgb 15.1 g/dL (13.5-18.0) 12/06/19 05:12 Hct 44.8 % (42.0-54.0) 12/06/19 05:12 MCV 86.5 fL (80.0-100.0) 12/06/19 05:12 MCH 29.1 pg (27.0-34.0) 12/06/19 05:12 MCHC 33.6 g/dL (33.0-35.0) 12/06/19 05:12 RDW 14.8 % (11.6-16.5) 12/06/19 05:12 Plt Count 217 X10^3/uL (150.0-450.0) 12/06/19 05:12 MPV 8.0 fL (7.4-11.0) 12/06/19 05:12 Neut % (Auto) 47.2 % (42.0-75.0) 12/06/19 05:12 Lymph % (Auto) 39.7 % (21.0-51.0) 12/06/19 05:12 [place] % (Auto) 10.8 % (0.0-13.0) 12/06/19 05:12 Eos % (Auto) 1.6 % (0.9-2.9) 12/06/19 05:12 Baso % (Auto) 0.7 % (0.2-1.0) 12/06/19 05:12 Neut # (Auto) 3.2 x10^3/uL (2.2-4.8) 12/06/19 05:12 Lymph # (Auto) 2.7 X10^3/uL (1.3-2.9) 12/06/19 05:12 [place] # (Auto) 0.7 x10^3/uL (0.3-0.8) 12/06/19 05:12 Eos # (Auto) 0.1 x10^3/uL (0.0-0.2) 12/06/19 05:12 Baso # (Auto) 0.0 X10^3/uL (0.0-0.1) 12/06/19 05:12 Absolute Nucleated RBC 0.3 /100WBC 12/06/19 05:12 Sample Site Rb 12/05/19 14:15 ABG pH 7.430 (7.35-7.45) 12/05/19 14:15 ABG pCO2 40.0 mmHg (35.0-45.0) 12/05/19 14:15 ABG pO2 63.0 mmHg (80.0-100.0) L 12/05/19 14:15 ABG HCO3 26.5 mmol/L (22-26) H 12/05/19 14:15 ABG O2 Saturation 92.0 % (90-100) 12/05/19 14:15 ABG Base Excess 2.0 mmol/L (-2.0-2.0) 12/05/19 14:15 Benji Test Na 12/05/19 14:15 A-a Gradient 115.0 mmHg 12/05/19 14:15 FiO2 32.0 12/05/19 14:15 Blood Gas Comments Pt jay well. cdn 12/05/19 14:15 Sodium 135 mmol/L (136-145) L 12/06/19 05:12 Corrected Sodium TNP 12/06/19 05:12 Potassium 4.4 mmol/L (3.5-5.1) 12/06/19 05:12 Chloride 101 mmol/L (98-107) 12/06/19 05:12 Carbon Dioxide 27.7 mmol/L (21-32) 12/06/19 05:12 BUN 8 mg/dL (7-18) 12/06/19 05:12 Creatinine 1.28 mg/dL (0.70-1.30) 12/06/19 05:12 Est GFR (MDRD) Af Amer > 60 (>60) 12/06/19 05:12 Est GFR (MDRD) Non-Af > 60 (>60) 12/06/19 05:12 Glucose 102 mg/dL (65-99) H 12/06/19 05:12 Lactic Acid 1.6 mmol/L (0.4-2.0) 12/05/19 15:05 Calcium 8.9 mg/dL (8.5-10.1) 12/06/19 05:12 Corrected Calcium 9.8 mg/dL (8.5-10.1) 12/06/19 05:12 Magnesium 1.7 mg/dL (1.7-2.9) 12/06/19 05:12 Total Bilirubin 0.40 mg/dL (0.2-1.0) 12/06/19 05:12 AST 21 Units/L (15-37) 12/06/19 05:12 ALT 22 Units/L (12-78) 12/06/19 05:12 Alkaline Phosphatase 55 Units/L (46-116) 12/06/19 05:12 Creatine Kinase 88 Units/L (39-308) 12/06/19 05:12 CK-MB (CK-2) 1.6 ng/mL (0-4.0) 12/06/19 05:12 CK/CKMB % Calc 1.8 % (<4) 12/06/19 05:12 Troponin I < 0.02 ng/mL (0-1.5) 12/06/19 05:12 B-Natriuretic Peptide 112 pg/mL (0-79) H 12/05/19 14:16 Total Protein 6.6 g/dL (6.4-8.2) 12/06/19 05:12 Albumin 2.9 g/dL (3.4-5.0) L 12/06/19 05:12 Globulin 3.7 g/dL (2.5-4.5) 12/06/19 05:12 Albumin/Globulin Ratio 0.8 Ratio (1.1-2.1) L 12/06/19 05:12 Specimen Type Random urine 12/06/19 00:35 Urine Color Yellow (YELLOW) 12/06/19 00:35 Urine Appearance Clear (CLEAR) 12/06/19 00:35 Urine pH 6.5 (5.0 - 8.0) 12/06/19 00:35 Ur Specific [place] 1.010 (1.000-1.030) 12/06/19 00:35 Urine Protein Negative (NEGATIVE) 12/06/19 00:35 Urine Glucose (UA) Negative (NEGATIVE) 12/06/19 00:35 Urine Ketones Negative (NEGATIVE) 12/06/19 00:35 Urine Occult Blood 1+ (NEGATIVE) 12/06/19 00:35 Urine Nitrite Negative (NEGATIVE) 12/06/19 00:35 Urine Bilirubin Negative (NEGATIVE) 12/06/19 00:35 Urine Urobilinogen Normal (NORMAL) 12/06/19 00:35 Ur Leukocyte Esterase Negative (NEGATIVE) 12/06/19 00:35 Urine RBC None seen /HPF (0-3) 12/06/19 00:35 Urine WBC None seen /HPF (0-5) 12/06/19 00:35 Ur Squamous Epith Cells Moderate /HPF (NEGATIVE) 12/06/19 00:35 Urine Bacteria Trace /HPF (NEGATIVE) 12/06/19 00:35 Ur Culture Indicated? No/not indicated 12/06/19 00:35 Urine Opiates Screen Negative (NEG=<300) 12/06/19 00:35 Urine Methadone Screen Negative (NEG=<300) 12/06/19 00:35 Ur Barbiturates Screen Negative (NEG=<200) 12/06/19 00:35 Ur Phencyclidine Scrn Negative (NEG=<25) 12/06/19 00:35 Ur Amphetamines Screen Negative (NEG=<1000) 12/06/19 00:35 U Benzodiazepines Scrn Positive (NEG=<200) 12/06/19 00:35 Urine Cocaine Screen Negative (NEG=<300) 12/06/19 00:35 U Marijuana (THC) Screen Negative (NEG=<50) 12/06/19 00:35 Influenza Type A Ag Negative-presumptive (NEGATIVE) 12/05/19 14:10 Influenza Type B Ag Negative-presumptive (NEGATIVE) 12/05/19 14:10 SARS-CoV-2 (PCR) Negative (NEGATIVE) 12/05/19 17:02 - Plan (1) SOB (shortness of breath) Status: Acute Plan: CE AND EKG ON ADMISSION. SUPPLEMENTAL O2, RESP THERAPY. COVID 19 ON ADMISSION, IV ATBX, BP CONTROL. VERIFY HOME MEDICATION, STRICT I &OS. TELEMETRY, DUO NEBS (2) COPD exacerbation Status: Acute (3) Hypotension Status: Acute Qualifiers: Hypotension type: unspecified hypotension type Qualified Code(s): I95.9 - Hypotension, unspecified (4) Pulmonary vascular congestion Status: Acute
[2019-12-06] MEDS: DUONEB 0.5 MG/3 MG (3 mL) NEB SCH ×2 (14:10→21:42)
[2019-12-06] MEDS: ZITHROMAX INJ 500 MG VIAL 500 MG in NS 250 ML IV 250 ML IV SCH (20:43)
[2019-12-06] MEDS: LIPITOR TAB 40 MG PO SCH (20:43)
[2019-12-07 03:50] LABS: CRYPTOSPORIDIUM PARVUM ANTIGEN NEGATIVE (NEGATIVE); GIARDIA LAMBLIA ANTIGEN NEGATIVE (NEGATIVE)
[2019-12-07] MEDS: DUONEB 0.5 MG/3 MG (3 mL) NEB SCH ×3 (05:20→21:10)
--- NOTE | 2019-12-07 06:01 | RAD ---
HISTORYCHF COPDSTUDYChest PA and lateral [id number] normal heart size and contour. The lungs are clear of acti ve-appearing disease. There is slight bilateral interstitial prominence consistent with chronic perib ronchial thickening. No mediastinal or hilar lesion demonstrated.IMPRESSIONNo acute chest disease dem onstrated.Electronically signed by: MARY ANN TERRY (Dec 07, 2019 06:00:13)
[2019-12-07 07:32] LABS: BASOPHILS % (AUTO) 0.4 % (0.2-1.0); EOSINOPHILS # (AUTO) 0.1 x10^3/uL (0.0-0.2); HEMATOCRIT 47.3 % (42.0-54.0); HEMOGLOBIN 15.6 g/dL (13.5-18.0); LYMPHOCYTES # (AUTO) 2.8 X10^3/uL (1.3-2.9); LYMPHOCYTES % (AUTO) 37.2 % (21.0-51.0); MEAN CORPUSCULAR HGB CONC 33.1 g/dL (33.0-35.0); MEAN CORPUSCULAR VOLUME 87.8 fL (80.0-100.0); MEAN PLATELET VOLUME 8.8 fL (7.4-11.0); MONOCYTES # (AUTO) 0.5 x10^3/uL (0.3-0.8); MONOCYTES % (AUTO) 7.4 % (0.0-13.0); PLATELET COUNT 224 X10^3/uL (150.0-450.0); RED BLOOD COUNT 5.38 X10^6/uL (4.7-6.0); RED CELL DISTRIBUTION WIDTH 14.3 % (11.6-16.5); WHITE BLOOD COUNT 7.4 X10^3/uL (3.6-10.0)
[2019-12-07 07:46] LABS: ALANINE AMINOTRANSFERASE 21 Units/L (12-78); ALBUMIN 3.2 g/dL (3.4-5.0); ALKALINE PHOSPHATASE 57 Units/L (46-116); ASPARTATE AMINO TRANSFERASE 19 Units/L (15-37); BLOOD UREA NITROGEN 9 mg/dL (7-18); CALCIUM 9.4 mg/dL (8.5-10.1); CARBON DIOXIDE 26.5 mmol/L (21-32); CHLORIDE 103 mmol/L (98-107); CREATININE 1.23 mg/dL (0.70-1.30); SODIUM 138 mmol/L (136-145); TOTAL PROTEIN 7.2 g/dL (6.4-8.2); eGFR NON BLACK RACES > 60 (>60)
[2019-12-07] MEDS: ROCEPHIN VIAL 1 GRAM 1 G in NS 100 ML IV + SPIKE MINIBAG* 100 ML IV SCH (09:42)
[2019-12-07] MEDS: COREG TAB 3.125 MG PO SCH ×2 (09:43→20:33)
[2019-12-07] MEDS: ASPIRIN EC 81 MG PO SCH (09:43)
[2019-12-07] MEDS: BRILINTA PO SCH ×2 (09:43→20:33)
[2019-12-07] MEDS: FLOMAX PO SCH (09:43)
[2019-12-07 11:58] LABS: CKMB % 1.2 % (<4); CREATINE KINASE 106 Units/L (39-308); CREATINE KINASE MB 1.3 ng/mL (0-4.0); MAGNESIUM 1.9 mg/dL (1.7-2.9); TROPONIN I < 0.02 ng/mL (0-1.5)
[2019-12-07] MEDS: PERCOCET TAB 5/325 MG PO PRN (16:51)
[2019-12-07] MEDS ORDERED: NexIUM ONE (19:17)
[2019-12-07] MEDS: NexIUM PO SCH (19:26)
[2019-12-07] MEDS: ZITHROMAX INJ 500 MG VIAL 500 MG in NS 250 ML IV 250 ML IV SCH (20:34)
[2019-12-07] MEDS: LIPITOR TAB 40 MG PO SCH (20:34)
--- NOTE | 2019-12-08 05:16 | RAD ---
STUDY: FRONTAL VIEW CHESTCOMPARISON: December 07, 2019HISTORY: COPD, CHFFINDINGS:COPD/emphysema is noted.No focal consolidation is seen.The heart size is within normal limits. There is no radiographic evidence of pulmonary edemaThe mediastinum is unremarkable.There is no evidence of pleural effusion or gross pneumothorax.The trachea is midline.IMPRESSION:1. No focal consolidation is seen.2. The heart size is normal.Electronically signed by: Geovani Kaplan (Dec 08, 2019 05:15:14)
[2019-12-08] MEDS: DUONEB 0.5 MG/3 MG (3 mL) NEB SCH ×3 (06:27→21:15)
[2019-12-08] MEDS: PERCOCET TAB 5/325 MG PO PRN (06:41)
[2019-12-08 07:20] LABS: BASOPHILS % (AUTO) 0.5 % (0.2-1.0); EOSINOPHILS # (AUTO) 0.1 x10^3/uL (0.0-0.2); EOSINOPHILS % (AUTO) 1.2 % (0.9-2.9); HEMATOCRIT 43.9 % (42.0-54.0); HEMOGLOBIN 14.7 g/dL (13.5-18.0); LYMPHOCYTES # (AUTO) 2.8 X10^3/uL (1.3-2.9); MEAN CORPUSCULAR HEMOGLOBIN 29.3 pg (27.0-34.0); MEAN CORPUSCULAR HGB CONC 33.4 g/dL (33.0-35.0); MEAN CORPUSCULAR VOLUME 87.6 fL (80.0-100.0); MEAN PLATELET VOLUME 8.7 fL (7.4-11.0); MONOCYTES # (AUTO) 0.5 x10^3/uL (0.3-0.8); NEUTROPHILS # (AUTO) 4.2 x10^3/uL (2.2-4.8); NEUTROPHILS % (AUTO) 54.3 % (42.0-75.0); PLATELET COUNT 214 X10^3/uL (150.0-450.0); RED BLOOD COUNT 5.01 X10^6/uL (4.7-6.0); RED CELL DISTRIBUTION WIDTH 14.8 % (11.6-16.5); WHITE BLOOD COUNT 7.7 X10^3/uL (3.6-10.0)
[2019-12-08 07:33] LABS: ALANINE AMINOTRANSFERASE 20 Units/L (12-78); ALBUMIN 3.2 g/dL (3.4-5.0); ALKALINE PHOSPHATASE 53 Units/L (46-116); ASPARTATE AMINO TRANSFERASE 20 Units/L (15-37); BLOOD UREA NITROGEN 7 mg/dL (7-18); CALCIUM 8.9 mg/dL (8.5-10.1); CARBON DIOXIDE 25.3 mmol/L (21-32); CHLORIDE 104 mmol/L (98-107); COR CA(FOR HYPOALB) 9.5 mg/dL (8.5-10.1); CREATININE 1.16 mg/dL (0.70-1.30); SODIUM 138 mmol/L (136-145); TOTAL PROTEIN 6.9 g/dL (6.4-8.2); eGFR NON BLACK RACES > 60 (>60)
[2019-12-08] MEDS: ROCEPHIN VIAL 1 GRAM 1 G in NS 100 ML IV + SPIKE MINIBAG* 100 ML IV SCH (09:22)
[2019-12-08] MEDS: BRILINTA PO SCH ×2 (09:23→20:54)
[2019-12-08] MEDS: FLOMAX PO SCH (09:23)
[2019-12-08] MEDS: NexIUM PO SCH (09:23)
[2019-12-08] MEDS: ASPIRIN EC 81 MG PO SCH (09:23)
[2019-12-08] MEDS: COREG TAB 3.125 MG PO SCH ×2 (09:23→20:54)
[2019-12-08] MEDS ORDERED: KLOR-CON PO PRN (10:53)
[2019-12-08] MEDS ORDERED: K-DUR TAB 20 MEQ PO PRN (10:53)
[2019-12-08] MEDS ORDERED: POTASSIUM CHL 60 MEQ/NS 0.45% 500 ML IV PRN (10:53)
[2019-12-08] MEDS ORDERED: POTASSIUM CHLORIDE LIQ 20 MEQ UDC PO PRN (10:53)
[2019-12-08] MEDS ORDERED: K-RIDER 10 MEQ/NS 100 ML 10 MEQ/100 ML BAG IV PRN (10:53)
[2019-12-08] MEDS ORDERED: MICRO K EXTEN CAP 10 MEQ PO PRN (10:53)
[2019-12-08] MEDS ORDERED: POTASSIUM CHL 40 MEQ/NS 0.45% 500 ML IV PRN (10:53)
[2019-12-08] MEDS ORDERED: MAGNESIUM SULFATE 1 GRAM/100 mL PREMIX 1 GM/100 ML BAG IV PRN (12:35)
[2019-12-08] MEDS ORDERED: MAGNESIUM SULFATE 1 GRAM/100 mL PREMIX 1 G/100 ML BAG IV ONE (13:01)
[2019-12-08] MEDS ORDERED: NS 250 ML IV 250 ML IV ONE (13:03)
[2019-12-08] MEDS: ROBITUSSIN DM PO SCH ×3 (13:06→21:42)
[2019-12-08] MEDS: LIPITOR TAB 40 MG PO SCH (20:54)
[2019-12-08] MEDS: ZITHROMAX INJ 500 MG VIAL 500 MG in NS 250 ML IV 250 ML IV SCH (21:42)
[2019-12-09] MEDS: DUONEB 0.5 MG/3 MG (3 mL) NEB SCH (06:27)
[2019-12-09 06:30] LABS: BASOPHILS % (AUTO) 0.7 % (0.2-1.0); EOSINOPHILS # (AUTO) 0.1 x10^3/uL (0.0-0.2); EOSINOPHILS % (AUTO) 1.9 % (0.9-2.9); HEMATOCRIT 43.4 % (42.0-54.0); HEMOGLOBIN 14.4 g/dL (13.5-18.0); LYMPHOCYTES # (AUTO) 2.5 X10^3/uL (1.3-2.9); LYMPHOCYTES % (AUTO) 38.5 % (21.0-51.0); MEAN CORPUSCULAR HEMOGLOBIN 28.9 pg (27.0-34.0); MEAN CORPUSCULAR HGB CONC 33.3 g/dL (33.0-35.0); MEAN PLATELET VOLUME 8.2 fL (7.4-11.0); MONOCYTES # (AUTO) 0.4 x10^3/uL (0.3-0.8); MONOCYTES % (AUTO) 6.7 % (0.0-13.0); NEUTROPHILS # (AUTO) 3.4 x10^3/uL (2.2-4.8); NEUTROPHILS % (AUTO) 52.2 % (42.0-75.0); PLATELET COUNT 207 X10^3/uL (150.0-450.0); RED BLOOD COUNT 4.99 X10^6/uL (4.7-6.0); RED CELL DISTRIBUTION WIDTH 14.6 % (11.6-16.5); WHITE BLOOD COUNT 6.6 X10^3/uL (3.6-10.0)
[2019-12-09 06:52] LABS: ALANINE AMINOTRANSFERASE 19 Units/L (12-78); ALBUMIN 3.1 g/dL (3.4-5.0); ALKALINE PHOSPHATASE 47 Units/L (46-116); ASPARTATE AMINO TRANSFERASE 21 Units/L (15-37); BLOOD UREA NITROGEN 7 mg/dL (7-18); CALCIUM 8.6 mg/dL (8.5-10.1); CARBON DIOXIDE 26.5 mmol/L (21-32); CHLORIDE 105 mmol/L (98-107); COR CA(FOR HYPOALB) 9.3 mg/dL (8.5-10.1); CREATININE 1.15 mg/dL (0.70-1.30); MAGNESIUM 2.2 mg/dL (1.7-2.9); SODIUM 138 mmol/L (136-145); TOTAL PROTEIN 6.7 g/dL (6.4-8.2); eGFR NON BLACK RACES > 60 (>60)
[2019-12-09 08:31] VITALS: BP 103/76
[2019-12-09] MEDS ORDERED: ROCEPHIN VIAL 1 GRAM ONE (08:48)
[2019-12-09] MEDS: BRILINTA PO SCH (08:55)
[2019-12-09] MEDS: FLOMAX PO SCH (08:55)
[2019-12-09] MEDS: COREG TAB 3.125 MG PO SCH (08:55)
[2019-12-09] MEDS: ROBITUSSIN DM PO SCH (08:55)
[2019-12-09] MEDS: ASPIRIN EC 81 MG PO SCH (08:56)
[2019-12-09] MEDS: ROCEPHIN VIAL 1 GRAM 1 G in NS 100 ML IV + SPIKE MINIBAG* 100 ML IV SCH (08:56)
[2019-12-09] MEDS: PERCOCET TAB 5/325 MG PO PRN (09:02)
[2019-12-09] MEDS: NexIUM PO SCH (09:52)
== END 2019-12-09 12:15 | disposition home health service (06) ==
LOC: ER 13:54 → MED/SURG 13:54
PROVIDERS: ADMIT Internal Medicine; ATTEND Internal Medicine
DX: K21.9 Gastro-esophageal reflux disease without esophagitis; Z99.81 Dependence on supplemental oxygen; Z72.0 Tobacco use; R26.89 Other abnormalities of gait and mobility; Z86.73 Personal history of transient ischemic attack (TIA), and cerebral infarction without residual deficits; I95.89 Other hypotension; R94.31 Abnormal electrocardiogram [ECG] [EKG]; J44.0 Chronic obstructive pulmonary disease with (acute) lower respiratory infection; Z79.899 Other long term (current) drug therapy; R06.02 Shortness of breath; J44.1 Chronic obstructive pulmonary disease with (acute) exacerbation; J20.8 Acute bronchitis due to other specified organisms; Z11.59 Encounter for screening for other viral diseases
CPT/HCPCS: 36415; 36600; 71010; 71020; 71045; 71046; 80053; 80307; 81001; 82270; 82550; 82553; 82803; 83605; 83630; 83735; 83880; 84484; 85025; 87040; 87045; 87328; 87329; 87400; 87427; 87449; 87493; 87635; 87804; 87899; 93005; 94640; 94760; 96365; 96374; 97110; 97162; 97167; 97535; 99284; A4222; G0378; J0456; J0696; J1940; J3475; J7040; J7050; J7620

== ENCOUNTER 2023-08-23 14:48 | Observation (INO) ==
--- NOTE | 2023-08-23 15:00 | DR.SOBA ---
HPI Time Seen Time Seen by Provider: 08/23/23 15:01 Complaints Chief Complaint Doctors Comments: 68-year-old male presents for evaluation. Patient with history of COPD, having worsening cough, worsening shortness of breath. Patient feels he may have pneumonia. Coughing up some sputum, white in color. Did have a fever, no chills. Having some chest discomfort across the anterior chest, worse with cough. Denies nausea, vomiting, bowel or bladder issues. Patient is a smoker. He is on O2 at home. Not have a traveling tank for his O2. Reviewed Nurses Notes Reviewed: Yes Source History Provided: Patient Mode of Arrival Mode of Arrival: Wheelchair PMH PMH Past Medical History: Anxiety, Arthritis, Asthma, COPD, Coronary Artery Disease, CVA, Depression, Dyslipidemia, GERD, Liver Disease and ND Past Surgical History: Yes Surgical History: Appendectomy Family History Family Medical History: Diabetes Mellitus, Cancer, ND, Coronary Artery Disease, Heart Failure and Hypertension Social History Does patient currently use any type of tobacco product: Yes Alcohol Use: None Do you use any recreational Drugs:: No ROS Review of Systems Constitutional: No Symptoms Reported Eyes: No Symptoms Reported ENTM: No Symptoms Reported Respiratoy: See HPI Cardiovascular: Chest Pain Gastrointestinal/Abdominal: No Symptoms Reported Genitourinary: No Symptoms Reported Neurological: No Symptoms Reported Integumentary: No Symptoms Reported Hematologic/Lymphatic: No Symptoms Reported All Other Systems: Reviewed and Negative PE Vital Signs Vitals: Vital Signs Temperature 98.2 F Pulse Rate 84 Pulse Rate 85 Pulse Rate 82 Pulse Rate 85 Pulse Rate 81 Pulse Rate 91 Pulse Rate 83 Pulse Rate 81 Pulse Rate 79 Pulse Rate 79 Pulse Rate 80 Pulse Rate 85 Respiratory Rate 29 Respiratory Rate 29 Respiratory Rate 26 Respiratory Rate 32 Respiratory Rate 28 Respiratory Rate 23 Respiratory Rate 25 Respiratory Rate 26 Respiratory Rate 27 Respiratory Rate 24 Respiratory Rate 27 Respiratory Rate 24 Blood Pressure 111/59 O2 Sat by Pulse Oximetry 95 O2 Sat by Pulse Oximetry 91 O2 Sat by Pulse Oximetry 91 O2 Sat by Pulse Oximetry 91 O2 Sat by Pulse Oximetry 93 General General Appearance: Alert and In No Apparent Distress Eyes Eye exam: PERRL and EOMI ENT ENT Exam: Normal Oropharynx, Mucous Membranes Moist and TM's Normal Bilaterally Neck Neck Exam: Normal Inspection and Full ROM; negative Tenderness Chest Chest Inspection: Tenderness (left anterior chest wall) Respiratory Respiratory Exam: Other (+ bibasilar rales); negative Accessory Muscle Use or Respiratory Distress Cardiovascular Cardiovascular Exam: Regular Rate, Normal Rhythm and Normal Heart Sounds Abdominal Exam Abdominal Exam: Normal Inspection, Normal Bowel Sounds and Soft; negative Tenderness Extremities Extremities Exam: negative Edema Neurologic Neurological Exam: Alert, Oriented X3 and CN II-XII Intact Skin Skin Exam: Warm and Dry ROR Labs Reviewed 08/23/23 15:26 08/23/23 15: Laboratory: WBC 7.9 X10^3/uL (3.6-10.0) 08/23/23 15: RBC 5.06 X10^6/uL (4.7-6.0) 08/23/23 15: Hgb 13.6 g/dL (13.5-18.0) 08/23/23 15: Hct 41.2 % (42.0-54.0) L 08/23/23 15: MCV 81.4 fL (80.0-100.0) 08/23/23 15: MCH 27.0 pg (27.0-34.0) 08/23/23 15: MCHC 33.1 g/dL (33.0-35.0) 08/23/23 15: RDW 15.9 % (11.6-16.5) 08/23/23 15: Plt Count 265 X10^3/uL (150.0-450.0) 08/23/23 15: MPV 7.7 fL (7.4-11.0) 08/23/23 15: Neut % (Auto) 62.4 % (42.0-75.0) 08/23/23 15: Lymph % (Auto) 23.2 % (21.0-51.0) 08/23/23 15: [place] % (Auto) 13.0 % (0.0-13.0) 08/23/23 15: Eos % (Auto) 0.9 % (0.9-2.9) 08/23/23: Baso % (Auto) 0.5 % (0.2-1.0) 08/23/23 15: Neut # (Auto) 5.0 x10^3/uL (2.2-4.8) H 08/23/23 15: Lymph # (Auto) 1.8 X10^3/uL (1.3-2.9) 08/23/23 15:26 [place] # (Auto) 1.0 x10^3/uL (0.3-0.8) H 08/23/23 15:26 Eos # (Auto) 0.1 x10^3/uL (0.0-0.2) 08/23/23 15:26 Baso # (Auto) 0.0 X10^3/uL (0.0-0.1) 08/23/23 15:26 Absolute Nucleated RBC 0.1 /100WBC 08/23/23 15:26 Sodium 131 mmol/L (136-145) L 08/23/23 15:26 Corrected Sodium TNP 08/23/23 15:26 Potassium 2.7 mmol/L (3.5-5.1) L* 08/23/23 15:26 Chloride 89 mmol/L (98-107) L 08/23/23 15:26 Carbon Dioxide 32.2 mmol/L (21-32) H 08/23/23 15:26 BUN 9 mg/dL (7-18) 08/23/23 15:26 Creatinine 1.13 mg/dL (0.70-1.30) 08/23/23 15:26 Est GFR (MDRD) Af Amer > 60 (>60) 08/23/23 15:26 Est GFR (MDRD) Non-Af > 60 (>60) 08/23/23 15:26 Glucose 103 mg/dL (65-99) H 08/23/23 15:26 Lactic Acid 1.1 mmol/L (0.4-2.0) 08/23/23 15:40 Calcium 8.7 mg/dL (8.5-10.1) 08/23/23 15:26 Corrected Calcium 9.9 mg/dL (8.5-10.1) 08/23/23 15:26 Total Bilirubin 1.10 mg/dL (0.2-1.0) H 08/23/23 15:26 AST 29 Units/L (15-37) 08/23/23 15:26 ALT 40 Units/L (12-78) 08/23/23 15:26 Alkaline Phosphatase 120 Units/L (46-116) H 08/23/23 15:26 Troponin I High Sens 78.4 ng/L (4.0-60.0) H* 08/23/23 15:26 B-Natriuretic Peptide 439 pg/mL (0-79) H 08/23/23 15:26 Total Protein 7.0 g/dL (6.4-8.2) 08/23/23 15:26 Albumin 2.5 g/dL (3.4-5.0) L 08/23/23 15:26 Globulin 4.5 g/dL (2.5-4.5) 08/23/23 15:26 Albumin/Globulin Ratio 0.6 Ratio (1.1-2.1) L 08/23/23 15:26 SARS-CoV-2 (PCR) Negative (NEGATIVE) 08/23/23 16:33 Influenza Type A (PCR) Negative (NEGATIVE) 08/23/23 16:33 Influenza Type B (PCR) Negative (NEGATIVE) 08/23/23 16:33 RSV (PCR) Negative (NEGATIVE) 08/23/23 16:33 EKG Rate: 81 [place]: RAD Rhythm: NSR and PACs ST: Normal Opioid Opioid Risk Tool Age (Sae box if 16-45): No History of Preadolescent Sexual Abuse: No Total: 0 Total Score Risk Category: Low Risk Copyright: Misael TEJEDA predicting aberrant behaviors Discharge Plan Diagnosis Discharge Problem: Bilateral pneumonia, COPD exacerbation, Electrolyte abnormality Discharge Plan Patient Disposition: 09 ADMITTED INPATIENT Condition: Stable Orders to Discharge Patient Discharge Orders: Transfer (Routine); Ordered 08/23/23 Ordered By: Maxwell Clark
--- NOTE | 2023-08-23 15:18 | EKG ---
Test Reason : dyspnea Blood Pressure : */* mmHG Vent. Rate : 81 BPM Atrial Rate : 81 BPM P-R Int : 144 ms QRS Dur : 98 ms QT Int : 414 ms P-R-T Axes : 59 95 2 degrees QTc Int : 480 ms Sinus rhythm with premature atrial complexes Rightward axis Anterior infarct (cited on or before 22-MAY-2022) Abnormal ECG When compared with ECG of 13-MAR-2023 09:57, premature ventricular complexes are no longer present premature atrial complexes are now present Criteria for Inferior infarct are no longer present Nonspecific T wave abnormality no longer evident in Lateral leads QT has lengthened Confirmed by Valerio Martinez MD ([id number]) on 08/24/2023 7:41:40 AM Referred By: Confirmed By: Valerio Martinez MD
--- NOTE | 2023-08-23 15:39 | RAD ---
EXAM: CHEST, 1 VIEW HISTORY: Shortness of Breath; COMPARISON: No relevant prior studies were available for comparison at the time of interpretation. TECHNIQUE: CHEST, 1 VIEW FINDINGS: Chest: Lines and tubes: Cardiac leads overlie the chest. Mediastinum: Cardiac and mediastinal shadow is within normal limits for size and contour. Pulmonary vessels: No pulmonary vascular congestion. Lung michel: Airspace opacities are seen in both bases Pleura: There is blunting of the left costophrenic angle. No pneumothorax. Bones and soft tissues: No acute osseous or soft tissue abnormality. IMPRESSION: 1. Bibasilar airspace opacities likely indicate pneumonia. 2. Small left pleural effusion THIS IS AN ELECTRONICALLY VERIFIED FINAL REPORT 08/23/2023 3:36 PM - Electronically signed by Og Pemberton MD
[2023-08-23 15:59] LABS: BASOPHILS % (AUTO) 0.5 % (0.2-1.0); EOSINOPHILS # (AUTO) 0.1 x10^3/uL (0.0-0.2); EOSINOPHILS % (AUTO) 0.9 % (0.9-2.9); HEMATOCRIT 41.2 % (42.0-54.0); HEMOGLOBIN 13.6 g/dL (13.5-18.0); LYMPHOCYTES # (AUTO) 1.8 X10^3/uL (1.3-2.9); LYMPHOCYTES % (AUTO) 23.2 % (21.0-51.0); MEAN CORPUSCULAR HGB CONC 33.1 g/dL (33.0-35.0); MEAN CORPUSCULAR VOLUME 81.4 fL (80.0-100.0); MEAN PLATELET VOLUME 7.7 fL (7.4-11.0); NEUTROPHILS % (AUTO) 62.4 % (42.0-75.0); PLATELET COUNT 265 X10^3/uL (150.0-450.0); RED BLOOD COUNT 5.06 X10^6/uL (4.7-6.0); RED CELL DISTRIBUTION WIDTH 15.9 % (11.6-16.5); WHITE BLOOD COUNT 7.9 X10^3/uL (3.6-10.0)
[2023-08-23] MEDS ORDERED: ROCEPHIN VIAL 1 GRAM ONE (16:23)
[2023-08-23 16:24] LABS: ALANINE AMINOTRANSFERASE 40 Units/L (12-78); ALBUMIN 2.5 g/dL (3.4-5.0); ALKALINE PHOSPHATASE 120 Units/L (46-116); ASPARTATE AMINO TRANSFERASE 29 Units/L (15-37); BLOOD UREA NITROGEN 9 mg/dL (7-18); CALCIUM 8.7 mg/dL (8.5-10.1); CARBON DIOXIDE 32.2 mmol/L (21-32); CHLORIDE 89 mmol/L (98-107); COR CA(FOR HYPOALB) 9.9 mg/dL (8.5-10.1); CREATININE 1.13 mg/dL (0.70-1.30); GLUCOSE 103 mg/dL (65-99); SODIUM 131 mmol/L (136-145); eGFR NON BLACK RACES > 60 (>60)
[2023-08-23 16:30] LABS: POTASSIUM 2.7 mmol/L (3.5-5.1)
[2023-08-23] MEDS: ROCEPHIN VIAL 1 GRAM IVP ONE (16:32)
[2023-08-23] MEDS ORDERED: K-DUR TAB 20 MEQ PO ONE (17:09)
[2023-08-23] MEDS: K-DUR TAB 20 MEQ PO ONE (17:14)
[2023-08-23] MEDS ORDERED: PATIENT'S HOME MEDICATION (Alprazolam 0.5 mg tablet) PO PRN (18:54)
[2023-08-23] MEDS ORDERED: PATIENT'S HOME MEDICATION (Oxycodone 20 mg tablet) PO PRN (18:54)
[2023-08-23] MEDS ORDERED: CONSULT PHARMACY - POTASSIUM & MAGNESIUM XX SCH (19:00)
[2023-08-23] MEDS ORDERED: XANAX PO PRN (19:02)
[2023-08-23] MEDS: ROCEPHIN VIAL 1 GRAM 1 G in NS 100 ML IV 100 ML IV SCH (19:12)
[2023-08-23 19:51] VITALS: BMI 26.7
[2023-08-23] MEDS: PATIENT'S HOME MEDICATION (Budesonide-Formoterol [Symbicort] 160-4.5 mcg/actuation HFA aer IN SCH (20:10)
[2023-08-23] MEDS: LIPITOR TAB 80 MG PO SCH (20:34)
[2023-08-23] MEDS: BRILINTA PO SCH (20:34)
[2023-08-23] MEDS: LR 1,000 ML IV 1,000 ML IV SCH (20:34)
[2023-08-23] MEDS: DUONEB 0.5 MG/3 MG (3 mL) NEB SCH (21:10)
[2023-08-23] MEDS: SOLU-Medrol 40 MG VIAL IVP SCH (21:29)
[2023-08-24] MEDS: ROXICODONE TAB 5 MG PO PRN (00:45)
[2023-08-24 04:59] LABS: BASOPHILS # (AUTO) 0.1 X10^3/uL (0.0-0.1); BASOPHILS % (AUTO) 0.6 % (0.2-1.0); EOSINOPHILS # (AUTO) 0.1 x10^3/uL (0.0-0.2); EOSINOPHILS % (AUTO) 0.9 % (0.9-2.9); HEMATOCRIT 38.5 % (42.0-54.0); HEMOGLOBIN 12.9 g/dL (13.5-18.0); LYMPHOCYTES # (AUTO) 1.6 X10^3/uL (1.3-2.9); LYMPHOCYTES % (AUTO) 18.2 % (21.0-51.0); MEAN CORPUSCULAR HGB CONC 33.4 g/dL (33.0-35.0); MEAN CORPUSCULAR VOLUME 80.8 fL (80.0-100.0); MEAN PLATELET VOLUME 7.9 fL (7.4-11.0); MONOCYTES # (AUTO) 1.2 x10^3/uL (0.3-0.8); MONOCYTES % (AUTO) 13.8 % (0.0-13.0); NEUTROPHILS # (AUTO) 5.9 x10^3/uL (2.2-4.8); NEUTROPHILS % (AUTO) 66.5 % (42.0-75.0); PLATELET COUNT 237 X10^3/uL (150.0-450.0); RED BLOOD COUNT 4.77 X10^6/uL (4.7-6.0); RED CELL DISTRIBUTION WIDTH 15.9 % (11.6-16.5); WHITE BLOOD COUNT 8.9 X10^3/uL (3.6-10.0)
[2023-08-24 05:13] LABS: ALANINE AMINOTRANSFERASE 33 Units/L (12-78); ALBUMIN 2.2 g/dL (3.4-5.0); ALKALINE PHOSPHATASE 115 Units/L (46-116); ASPARTATE AMINO TRANSFERASE 29 Units/L (15-37); BLOOD UREA NITROGEN 9 mg/dL (7-18); CALCIUM 8.4 mg/dL (8.5-10.1); CARBON DIOXIDE 28.9 mmol/L (21-32); CHLORIDE 91 mmol/L (98-107); COR CA(FOR HYPOALB) 9.8 mg/dL (8.5-10.1); CREATININE 1.07 mg/dL (0.70-1.30); GLUCOSE 98 mg/dL (65-99); MAGNESIUM 1.8 mg/dL (2.0-2.9); POTASSIUM 3.2 mmol/L (3.5-5.1); SODIUM 130 mmol/L (136-145); TOTAL PROTEIN 6.4 g/dL (6.4-8.2); eGFR NON BLACK RACES > 60 (>60)
[2023-08-24] MEDS ORDERED: CONSULT PHARMACY - POTASSIUM & MAGNESIUM XX SCH (07:00)
[2023-08-24] MEDS ORDERED: ALPRAZOLAM ODT PO PRN (07:13)
[2023-08-24] MEDS: PULMICORT NEB TX 0.5 MG NEB SCH (08:18)
[2023-08-24] MEDS: NexIUM PO SCH (08:56)
[2023-08-24] MEDS: MAG-OX TAB PO SCH (08:56)
[2023-08-24] MEDS: LASIX PO SCH (08:59)
[2023-08-24] MEDS: FLOMAX PO SCH ×2 (08:59→20:22)
[2023-08-24] MEDS: LEXAPRO PO SCH (08:59)
[2023-08-24] MEDS: K-DUR TAB 20 MEQ PO SCH (09:00)
[2023-08-24] MEDS: NS 250 ML IV 250 ML IV ONE (09:00)
[2023-08-24] MEDS: LEXAPRO ONE (10:15)
[2023-08-24] MEDS: NS 1,000 ML IV 1,000 ML IV SCH (10:21)
[2023-08-24] MEDS: MAGNESIUM SULFATE 1 GRAM/100 mL PREMIX 1 G/100 ML BAG IV SCH (10:42)
[2023-08-24] MEDS ORDERED: BUTT CREAM (COMPOUND) TOP PRN (12:58)
[2023-08-24] MEDS: LOVENOX INJ 40 MG SYR SC SCH (14:58)
[2023-08-25 05:00] LABS: BASOPHILS % (AUTO) 0.4 % (0.2-1.0); EOSINOPHILS % (AUTO) 0.4 % (0.9-2.9); HEMATOCRIT 34.2 % (42.0-54.0); HEMOGLOBIN 11.4 g/dL (13.5-18.0); LYMPHOCYTES # (AUTO) 1.1 X10^3/uL (1.3-2.9); LYMPHOCYTES % (AUTO) 16.7 % (21.0-51.0); MEAN CORPUSCULAR HEMOGLOBIN 26.9 pg (27.0-34.0); MEAN CORPUSCULAR HGB CONC 33.5 g/dL (33.0-35.0); MEAN CORPUSCULAR VOLUME 80.5 fL (80.0-100.0); MEAN PLATELET VOLUME 7.7 fL (7.4-11.0); MONOCYTES % (AUTO) 15.5 % (0.0-13.0); NEUTROPHILS # (AUTO) 4.5 x10^3/uL (2.2-4.8); PLATELET COUNT 235 X10^3/uL (150.0-450.0); RED BLOOD COUNT 4.24 X10^6/uL (4.7-6.0); RED CELL DISTRIBUTION WIDTH 16.1 % (11.6-16.5); WHITE BLOOD COUNT 6.7 X10^3/uL (3.6-10.0)
[2023-08-25 05:12] LABS: ALANINE AMINOTRANSFERASE 131 Units/L (12-78); ALKALINE PHOSPHATASE 115 Units/L (46-116); ASPARTATE AMINO TRANSFERASE 180 Units/L (15-37); BLOOD UREA NITROGEN 13 mg/dL (7-18); CALCIUM 7.9 mg/dL (8.5-10.1); CARBON DIOXIDE 28.1 mmol/L (21-32); CHLORIDE 100 mmol/L (98-107); COR CA(FOR HYPOALB) 9.5 mg/dL (8.5-10.1); CREATININE 0.96 mg/dL (0.70-1.30); GLUCOSE 95 mg/dL (65-99); MAGNESIUM 2.2 mg/dL (2.0-2.9); POTASSIUM 3.6 mmol/L (3.5-5.1); SODIUM 136 mmol/L (136-145); TOTAL PROTEIN 5.8 g/dL (6.4-8.2); eGFR NON BLACK RACES > 60 (>60)
[2023-08-25] MEDS ORDERED: CONSULT PHARMACY - POTASSIUM & MAGNESIUM XX SCH (07:00)
[2023-08-25] MEDS: K-DUR TAB 20 MEQ PO SCH (08:17)
[2023-08-25 10:10] VITALS: O2SAT 96
[2023-08-25 10:12] VITALS: TEMP 98.1
[2023-08-25] MEDS: LEXAPRO ONE (10:22)
[2023-08-25 11:05] VITALS: BP 81/51; PULSE 73; RESP 36
== END 2023-08-25 11:25 | disposition home or self-care (01) ==
LOC: ICU 14:48 → ER 14:48 → ICU 19:35
PROVIDERS: ADMIT Obstetrics & Gynecology Obstetrics; ATTEND Obstetrics & Gynecology Obstetrics
DX: E86.0 Dehydration; J90 Pleural effusion, not elsewhere classified; Z99.81 Dependence on supplemental oxygen; R94.31 Abnormal electrocardiogram [ECG] [EKG]; R07.89 Other chest pain; R77.8 Other specified abnormalities of plasma proteins; I25.10 Atherosclerotic heart disease of native coronary artery without angina pectoris; R06.02 Shortness of breath; Z86.73 Personal history of transient ischemic attack (TIA), and cerebral infarction without residual deficits; J18.8 Other pneumonia, unspecified organism; E87.6 Hypokalemia; E78.5 Hyperlipidemia, unspecified; K21.9 Gastro-esophageal reflux disease without esophagitis; J44.1 Chronic obstructive pulmonary disease with (acute) exacerbation; B95.3 Streptococcus pneumoniae as the cause of diseases classified elsewhere; Z20.822 Contact with and (suspected) exposure to COVID-19; E83.42 Hypomagnesemia; E87.1 Hypo-osmolality and hyponatremia

== ENCOUNTER 2023-09-29 17:00 | Inpatient (IN) ==
--- NOTE | 2023-09-29 17:56 | DR.ABDMALE ---
HPI Time seen Time Seen by Provider: 09/29/23 17:52 PCP Primary Care Physician: carlton feng Complaint Chief Complaint Doctors Comments: Patient complained of being sick for 2 weeks and complained of some increased abdominal pain swelling with nausea and diarrhea and vomiting. Patient does have a history of gastric cancer Chief Complaint:: patient c/o of being sick x2 wks also c/o of increased abd pain and swelling nausea,diarrhea denies any vomiting. COVID-19 Coronavirus risk:travel/contact w/high risk person: No Has patient experienced Coronavirus symptoms: No Mode of arrival Mode of Arrival: Stretcher Timing Onset of Chief Complaint: 10/10/23 PMH PMH Past Medical History: Yes Past Medical History: Anxiety, Arthritis, Asthma, COPD, Coronary Artery Disease, CVA, Depression, Dyslipidemia, GERD, Liver Disease and [place] Past Medical History Comment: stomach cancer Past Surgical History: Yes Surgical History: Appendectomy Family History History of Family Medical Conditions: Yes Family Medical History: Diabetes Mellitus, Cancer, Coronary Artery Disease and Hypertension Social History Does patient currently use any type of tobacco product: Yes Have you used tobacco products in the last 12 months: Yes Type of Tobacco Use: Cigarettes Does any household member use tobacco: Yes Alcohol Use: Occasionally Do you use any recreational Drugs:: No Lives With: Family Lives Where: Home Travel Risk Coronavirus risk:travel/contact w/high risk person: No Has patient experienced Coronavirus symptoms: No Infectious screening In the last 2 months have you had wt loss of >10#?: NO Have you had fever, night sweats or hemotysis?: No Have you traveled outside the country in the last 6 months?: No Isolation: Standard ROS Review of Systems Constitutional: Fatigue, Loss of Appetite and Other (Abdominal bloating and nausea) Eyes: No Symptoms Reported ENTM: No Symptoms Reported Respiratoy: No Symptoms Reported Cardiovascular: No Symptoms Reported Gastrointestinal/Abdominal: Nausea Genitourinary: No Symptoms Reported Neurological: No Symptoms Reported Musculoskeletal: No Symptoms Reported Integumentary: No Symptoms Reported Hematologic/Lymphatic: No Symptoms Reported Endocrine: No Symptoms Reported Psychiatric: No Symptoms Reported PE Vital Signs Vital Signs: Temp Pulse Resp BP Pulse Ox O2 Del Method O2 Flow Rate 09/30/23 01:01 90/61 09/30/23 01:01 87 95 09/30/23 01:00 87 94 L 04/20/24 00:56 82 95 09/30/23 00:30 93/55 09/30/23 00:00 91/55 09/29/23 23:30 99/56 09/29/23 23:00 100/57 09/29/23 22:30 100/59 09/29/23 22:00 99/55 09/29/23 21:30 104/55 09/29/23 21:11 88 90 L 09/29/23 21:00 96/52 09/29/23 20:30 106/53 09/29/23 19:30 104/56 09/29/23 19:18 98 H 09/29/23 19:15 98 H 94 L 09/29/23 19:08 95 H 95 09/29/23 19:00 112/66 09/29/23 18:30 106/52 09/29/23 18:03 96 09/29/23 18:00 96 H 97 09/29/23 18:00 108/57 09/29/23 17:45 94 H 96 Nasal Cannula 2 09/29/23 17:33 92 H 98 Nasal Cannula 2 09/29/23 17:15 97.8 F 92 H 18 105/65 96 Nasal Cannula General Limitations: Physical Limitation (deminished ambulation ) General Appearance: In Distress (mild distress) Head Head Exam: Normal Inspection and Atraumatic Eyes Eye exam: Normal Appearance ENT ENT Exam: Normal Exam, Normal Oropharynx and Normal External Ear Exam Neck Neck Exam: Normal Inspection, Full ROM and Trachea Midline Chest Chest Inspection: Normal Inspection and Symmetric Chest Wall Rise Respiratory Respiratory Exam: Normal Lung Sounds Bilat Cardiovascular Cardiovascular Exam: Regular Rate and Normal Rhythm Abdominal Exam Abdominal Exam: Distention Back Back Exam: Normal Inspection and Full ROM Extremeties Extremities Exam: Normal Inspection Neurologic Neurological Exam: Alert Psychiatric Psychiatric Exam: Depressed Skin Skin Exam: Warm, Dry and Intact MDM Differential Diagnosis Differential Diagnosis: Other (comments) (dehydration,cachexia,malnutrition,gastric cancer) COURSE Treatment Treatment: This patient has history of gastric cancer and now is having more increased abdominal bloating was given a 1 L bolus of normal saline and some Zofran 4 mg IV patient did have a slightly elevated white count on CBC that was 12.2 sodium was little low at 130 BUN elevated and BUN was elevated at 1.06. Set progressive cachexia with anorexia and he still does not follow-up with a oncologist for further evaluation or treatment of his gastric cancer. Spoke to Dr. Christopher at 00 45 and he said that we can refer the patient to observation for dehydration and cachexia. ROR Labs Reviewed Laboratory Results Reviewed?: Yes 09/29/23 18:15 09/29/23 18:15 Laboratory: WBC 12.2 X10^3/uL (3.6-10.0) H 09/29/23 18:15 RBC 4.53 X10^6/uL (4.7-6.0) L 09/29/23 18:15 Hgb 12.0 g/dL (13.5-18.0) L 09/29/23 18:15 Hct 36.7 % (42.0-54.0) L 09/29/23 18:15 MCV 81.1 fL (80.0-100.0) 09/29/23 18:15 MCH 26.5 pg (27.0-34.0) L 09/29/23 18:15 MCHC 32.7 g/dL (33.0-35.0) L 09/29/23 18:15 RDW 16.5 % (11.6-16.5) 09/29/23 18:15 Plt Count 201 X10^3/uL (150.0-450.0) 09/29/23 18:15 MPV 8.8 fL (7.4-11.0) 09/29/23 18:15 Neut % (Auto) 77.3 % (42.0-75.0) H 09/29/23 18:15 Lymph % (Auto) 13.0 % (21.0-51.0) L 09/29/23 18:15 [place] % (Auto) 8.3 % (0.0-13.0) 09/29/23 18:15 Eos % (Auto) 0.3 % (0.9-2.9) L 09/29/23 18:15 Baso % (Auto) 1.1 % (0.2-1.0) H 09/29/23 18:15 Neut # (Auto) 9.4 x10^3/uL (2.2-4.8) H 09/29/23 18:15 Lymph # (Auto) 1.6 X10^3/uL (1.3-2.9) 09/29/23 18:15 [place] # (Auto) 1.0 x10^3/uL (0.3-0.8) H 09/29/23 18:15 Eos # (Auto) 0.0 x10^3/uL (0.0-0.2) 09/29/23 18:15 Baso # (Auto) 0.1 X10^3/uL (0.0-0.1) 09/29/23 18:15 Absolute Nucleated RBC 0.6 /100WBC 09/29/23 18:15 Sodium 130 mmol/L (136-145) L 09/29/23 18:15 Corrected Sodium TNP 09/29/23 18:15 Potassium 4.2 mmol/L (3.5-5.1) 09/29/23 18:15 Chloride 93 mmol/L (98-107) L 09/29/23 18:15 Carbon Dioxide 26.9 mmol/L (21-32) 09/29/23 18:15 BUN 33 mg/dL (7-18) H 09/29/23 18:15 Creatinine 1.06 mg/dL (0.70-1.30) 09/29/23 18:15 Est GFR (MDRD) Af Amer > 60 (>60) 09/29/23 18:15 Est GFR (MDRD) Non-Af > 60 (>60) 09/29/23 18:15 Glucose 103 mg/dL (65-99) H 09/29/23 18:15 Calcium 8.8 mg/dL (8.5-10.1) 09/29/23 18:15 Corrected Calcium 10.3 mg/dL (8.5-10.1) H 09/29/23 18:15 Total Bilirubin 4.10 mg/dL (0.2-1.0) H 09/29/23 18:15 AST 387 Units/L (15-37) H 09/29/23 18:15 ALT 132 Units/L (12-78) H 09/29/23 18:15 Alkaline Phosphatase 724 Units/L (46-116) H 09/29/23 18:15 Total Protein 6.7 g/dL (6.4-8.2) 09/29/23 18:15 Albumin 2.1 g/dL (3.4-5.0) L 09/29/23 18:15 Globulin 4.6 g/dL (2.5-4.5) H 09/29/23 18:15 Albumin/Globulin Ratio 0.5 Ratio (1.1-2.1) L 09/29/23 18:15 Amylase 92 Units/L (25-115) 09/29/23 18:15 Lipase 153 Units/L (16-77) H 09/29/23 18:15 Specimen Type Catherized urine 09/29/23 19:04 Urine Color Ying (YELLOW) 09/29/23 19:04 Urine Appearance Clear (CLEAR) 09/29/23 19:04 Urine pH 6.0 (5.0 - 8.0) 09/29/23 19:04 Ur Specific [place] 1.015 (1.000-1.030) 09/29/23 19:04 Urine Protein 1+ (NEGATIVE) 09/29/23 19:04 Urine Glucose (UA) Negative (NEGATIVE) 09/29/23 19:04 Urine Ketones Negative (NEGATIVE) 09/29/23 19:04 Urine Blood 1+ (NEGATIVE) 09/29/23 19:04 Urine Nitrite Negative (NEGATIVE) 09/29/23 19:04 Urine Bilirubin 2+ (NEGATIVE) 09/29/23 19:04 Urine Urobilinogen 2+ (NORMAL) 09/29/23 19:04 Ur Leukocyte Esterase Negative (NEGATIVE) 09/29/23 19:04 Urine RBC 0-2 /HPF (0-3) 09/29/23 19:04 Urine WBC 0-2 /HPF (0-5) 09/29/23 19:04 Ur Squamous Epith Cells Rare /HPF (NEGATIVE) 09/29/23 19:04 Ur Transition Epith Cell Few /HPF (NEGATIVE) 09/29/23 19:04 Amorphous Sediment Trace /HPF (NEGATIVE) 09/29/23 19:04 Urine Bacteria Trace /HPF (NEGATIVE) 09/29/23 19:04 Hyaline Casts Rare /LPF (NEGATIVE) 09/29/23 19:04 Ur Culture Indicated? No/not indicated 09/29/23 19:04 Opioid Opioid Risk Tool Age (Sae box if 16-45): No History of Preadolescent Sexual Abuse: No Total: 0 Total Score Risk Category: Low Risk Copyright: Misael TEJEDA predicting aberrant behaviors Discharge Plan Diagnosis Discharge Problem: Dehydration, Cancer cachexia Discharge Plan Patient Disposition: ADMITTED INPATIENT Condition: Stable Orders to Discharge Patient Discharge Orders: Transfer (Routine); Ordered 09/30/23 Ordered By: Kirk Garcia
[2023-09-29 18:24] LABS: BASOPHILS # (AUTO) 0.1 X10^3/uL (0.0-0.1); BASOPHILS % (AUTO) 1.1 % (0.2-1.0); EOSINOPHILS % (AUTO) 0.3 % (0.9-2.9); HEMATOCRIT 36.7 % (42.0-54.0); LYMPHOCYTES # (AUTO) 1.6 X10^3/uL (1.3-2.9); MEAN CORPUSCULAR HEMOGLOBIN 26.5 pg (27.0-34.0); MEAN CORPUSCULAR HGB CONC 32.7 g/dL (33.0-35.0); MEAN CORPUSCULAR VOLUME 81.1 fL (80.0-100.0); MEAN PLATELET VOLUME 8.8 fL (7.4-11.0); MONOCYTES % (AUTO) 8.3 % (0.0-13.0); NEUTROPHILS # (AUTO) 9.4 x10^3/uL (2.2-4.8); NEUTROPHILS % (AUTO) 77.3 % (42.0-75.0); PLATELET COUNT 201 X10^3/uL (150.0-450.0); RED BLOOD COUNT 4.53 X10^6/uL (4.7-6.0); RED CELL DISTRIBUTION WIDTH 16.5 % (11.6-16.5); WHITE BLOOD COUNT 12.2 X10^3/uL (3.6-10.0)
[2023-09-29 18:34] LABS: ALANINE AMINOTRANSFERASE 132 Units/L (12-78); ALBUMIN 2.1 g/dL (3.4-5.0); ALKALINE PHOSPHATASE 724 Units/L (46-116); AMYLASE 92 Units/L (25-115); ASPARTATE AMINO TRANSFERASE 387 Units/L (15-37); BLOOD UREA NITROGEN 33 mg/dL (7-18); CALCIUM 8.8 mg/dL (8.5-10.1); CARBON DIOXIDE 26.9 mmol/L (21-32); CHLORIDE 93 mmol/L (98-107); COR CA(FOR HYPOALB) 10.3 mg/dL (8.5-10.1); CREATININE 1.06 mg/dL (0.70-1.30); GLUCOSE 103 mg/dL (65-99); LIPASE 153 Units/L (16-77); POTASSIUM 4.2 mmol/L (3.5-5.1); SODIUM 130 mmol/L (136-145); TOTAL PROTEIN 6.7 g/dL (6.4-8.2); eGFR NON BLACK RACES > 60 (>60)
[2023-09-29 19:12] LABS: BILIRUBIN,URINE 2+ (NEGATIVE); BLOOD/HEMOGLOBIN,URINE 1+ (NEGATIVE); GLUCOSE, URINE NEGATIVE (NEGATIVE); KETONES,URINE NEGATIVE (NEGATIVE); LEUKOCYTE ESTERASE ,URINE NEGATIVE (NEGATIVE); NITRITES,URINE NEGATIVE (NEGATIVE); PROTEIN,URINE 1+ (NEGATIVE); UROBILINOGEN,URINE 2+ (NORMAL)
[2023-09-29 19:17] LABS: APPEARANCE,URINE CLEAR (CLEAR); COLOR,URINE AMBER (YELLOW)
[2023-09-29 19:18] LABS: BACTERIA,URINE TRACE /HPF (NEGATIVE); HYALINE CASTS, URINE RARE /LPF (NEGATIVE); RBC,URINE 0-2 /HPF (0-3); SQUAMOUS EPITHELIAL CELL,UR RARE /HPF (NEGATIVE); TRANSITIONAL EPI CELLS,URINE FEW /HPF (NEGATIVE)
[2023-09-29] MEDS: NS 1,000 ML IV 1,000 ML IV ONE (19:32)
[2023-09-30] MEDS: D5 NS 1,000 ML IV 1,000 ML IV SCH (00:45)
[2023-09-30] MEDS ORDERED: ZOFRAN INJ 4 MG VIAL IVP PRN (01:11)
[2023-09-30] MEDS: D5 NS 1,000 ML IV 1,000 ML IV ONE (01:55)
[2023-09-30] MEDS: NS 1,000 ML IV 1,000 ML ONE (01:55)
[2023-09-30] MEDS: NS 1,000 ML IV 1,000 ML IV SCH (02:07)
[2023-09-30] MEDS ORDERED: NS 1,000 ML IV 1,000 ML ONE (02:12)
[2023-09-30 05:44] LABS: BASOPHILS # (AUTO) 0.1 X10^3/uL (0.0-0.1); BASOPHILS % (AUTO) 0.7 % (0.2-1.0); EOSINOPHILS % (AUTO) 0.4 % (0.9-2.9); HEMATOCRIT 34.3 % (42.0-54.0); HEMOGLOBIN 11.3 g/dL (13.5-18.0); LYMPHOCYTES # (AUTO) 1.3 X10^3/uL (1.3-2.9); LYMPHOCYTES % (AUTO) 11.8 % (21.0-51.0); MEAN CORPUSCULAR HEMOGLOBIN 26.8 pg (27.0-34.0); MEAN CORPUSCULAR VOLUME 81.4 fL (80.0-100.0); MONOCYTES # (AUTO) 1.1 x10^3/uL (0.3-0.8); MONOCYTES % (AUTO) 10.3 % (0.0-13.0); NEUTROPHILS # (AUTO) 8.4 x10^3/uL (2.2-4.8); NEUTROPHILS % (AUTO) 76.8 % (42.0-75.0); PLATELET COUNT 190 X10^3/uL (150.0-450.0); RED BLOOD COUNT 4.22 X10^6/uL (4.7-6.0); RED CELL DISTRIBUTION WIDTH 16.5 % (11.6-16.5); WHITE BLOOD COUNT 10.9 X10^3/uL (3.6-10.0)
[2023-09-30 05:47] LABS: BLOOD UREA NITROGEN 31 mg/dL (7-18); CALCIUM 8.7 mg/dL (8.5-10.1); CARBON DIOXIDE 26.1 mmol/L (21-32); CHLORIDE 98 mmol/L (98-107); CREATININE 1.08 mg/dL (0.70-1.30); GLUCOSE 100 mg/dL (65-99); POTASSIUM 4.2 mmol/L (3.5-5.1); SODIUM 134 mmol/L (136-145); eGFR NON BLACK RACES > 60 (>60)
[2023-09-30] MEDS ORDERED: MEGACE ORAL SUSP 400 MG/10 ML ONE (05:53)
[2023-09-30] MEDS: MEGACE ORAL SUSP 400 MG/10 ML PO SCH (05:55)
[2023-09-30 06:04] LABS: ALANINE AMINOTRANSFERASE 123 Units/L (12-78); ALBUMIN 1.9 g/dL (3.4-5.0); ALKALINE PHOSPHATASE 634 Units/L (46-116); ASPARTATE AMINO TRANSFERASE 341 Units/L (15-37); COR CA(FOR HYPOALB) 10.4 mg/dL (8.5-10.1); TOTAL PROTEIN 6.1 g/dL (6.4-8.2)
[2023-09-30] MEDS: PULMICORT NEB TX 0.5 MG NEB SCH (08:45)
[2023-09-30] MEDS ORDERED: BRILINTA PO SCH (09:00)
[2023-09-30] MEDS ORDERED: PATIENT'S HOME MEDICATION (Aspirin 81 mg Tablet) PO SCH (09:00)
[2023-09-30] MEDS ORDERED: LEXAPRO PO SCH (09:00)
[2023-09-30] MEDS ORDERED: MEGACE ORAL SUSP 400 MG/10 ML PO SCH (09:00)
[2023-09-30] MEDS ORDERED: FLOMAX PO SCH (09:00)
[2023-09-30] MEDS ORDERED: LEXAPRO ONE (09:11)
[2023-09-30] MEDS: FLOMAX PO SCH (09:14)
[2023-09-30] MEDS: ASPIRIN EC 81 MG PO SCH (09:15)
[2023-09-30] MEDS: LEXAPRO PO SCH (09:15)
[2023-09-30] MEDS: BRILINTA PO SCH (09:15)
[2023-09-30] MEDS ORDERED: NICOTINE PATCH TD SCH (10:00)
[2023-09-30] MEDS ORDERED: OMNIPAQUE 350 mg/mL 100 mL BTL 100 ML ONE (10:08)
[2023-09-30 10:48] LABS: INR 1.59 (0.8-1.3)
[2023-09-30 11:03] LABS: FREE T4 (FREE THYROXINE) 1.46 ng/dL (0.76-1.46); TSH (3RD GENERATION) 1.164 uIU/mL (0.358-3.74)
--- NOTE | 2023-09-30 12:15 | DR.H&P ---
H&P History & Physical for Day of: H&P Date: 09/30/23 Chief Complaint Chief Complaint: weakness, confusion, poor appetite, abdominal pain Allergies Allergies Allergy/AdvReac Type Severity Reaction Status Date / Time morphine Allergy Unknown Verified 09/22/23 15:13 Sulfa (Sulfonamide Allergy Unknown Verified 09/22/23 15:13 Antibiotics) [SULFA] History of Present Illness History of Present Illness: Patient complained of being sick for 2 weeks and complained of some increased abdominal pain swelling with nausea and diarrhea and vomiting. Patient does have a history of gastric cancer Past Medical History Past Medical History: Anxiety, Arthritis, Asthma, COPD, Coronary Artery Disease, CVA, Depression, Dyslipidemia, GERD, Liver Disease and DE Past Surgical History Surgical History: Appendectomy Family History Family Medical History: Diabetes Mellitus, Cancer, Coronary Artery Disease and Hypertension Social History Does patient currently use any type of tobacco product: Yes Have you used tobacco products in the last 12 months: Yes Type of Tobacco Use: Cigarettes Does any household member use tobacco: No Alcohol Use: Occasionally Drug Use: Marijuana Medications Home Medications: Home Medications Medication Instructions Recorded Confirmed Type atorvastatin 80 mg tablet 80 mg PO HS 12/05/19 09/29/23 History tamsulosin 0.4 mg capsule 0.4 mg PO DAILY 12/05/19 09/29/23 History alprazolam 0.5 mg tablet 0.5 mg PO HS 05/22/22 09/29/23 History escitalopram oxalate 10 mg tablet 10 mg PO QDAY 01/27/23 09/29/23 History esomeprazole magnesium 40 mg 40 mg PO QDAY 01/27/23 09/29/23 History capsule,delayed release oxycodone 20 mg tablet 20 mg PO TID PRN 01/27/23 09/29/23 History ticagrelor 90 mg tablet (Brilinta) 90 mg PO BID 01/27/23 09/29/23 History albuterol sulfate 0.63 mg/3 mL 0.63 mg continuous nebulization 08/23/23 09/29/23 History solution for nebulization Q4H PRN budesonide-formoterol HFA 160 1 puff inhalation DAILY 08/23/23 09/29/23 History mcg-4.5 mcg/actuation aerosol inhaler (Symbicort) fluticasone furoate 50 2 inh inhalation 2XW 08/23/23 09/29/23 History mcg/actuation blister powder for inhalation furosemide 20 mg tablet 20 mg PO BID 08/23/23 09/29/23 History mupirocin 2 % topical ointment 1 applic topical BID 08/23/23 09/29/23 History aspirin 81 mg tablet 81 mg PO QDAY 09/22/23 09/29/23 History hydrochlorothiazide 12.5 mg capsule 12.5 mg PO QDAY 09/22/23 09/29/23 History mirtazapine 30 mg tablet 30 mg PO HS 09/22/23 09/29/23 History potassium chloride 10 mEq 10 meq PO BID 09/22/23 09/29/23 History tablet,extended release(part/cryst) haloperidol 1 mg tablet 1 mg PO Q6H PRN 09/29/23 09/29/23 History hyoscyamine sulfate 0.125 mg 0.125 mg PO Q4H PRN 09/29/23 09/29/23 History disintegrating tablet loperamide 2 mg capsule 2 mg PO Q4H PRN 09/29/23 09/29/23 History lorazepam 0.5 mg tablet 0.5 mg PO Q4H PRN 09/29/23 09/29/23 History magnesium oxide 400 mg (241.3 mg 400 mg PO BID 09/29/23 09/29/23 History magnesium) tablet (MagOx) megestrol 400 mg/10 mL (40 mg/mL) 400 mg PO BID 09/29/23 09/29/23 History oral suspension Labs 09/30/23 05:19 09/30/23 05:19 Labs: Laboratory WBC 10.9 X10^3/uL (3.6-10.0) H 09/30/23 05:19 RBC 4.22 X10^6/uL (4.7-6.0) L 09/30/23 05:19 Hgb 11.3 g/dL (13.5-18.0) L 09/30/23 05:19 Hct 34.3 % (42.0-54.0) L 09/30/23 05:19 MCV 81.4 fL (80.0-100.0) 09/30/23 05:19 MCH 26.8 pg (27.0-34.0) L 09/30/23 05:19 MCHC 33.0 g/dL (33.0-35.0) 09/30/23 05:19 RDW 16.5 % (11.6-16.5) 09/30/23 05:19 Plt Count 190 X10^3/uL (150.0-450.0) 09/30/23 05:19 MPV 9.0 fL (7.4-11.0) 09/30/23 05:19 Neut % (Auto) 76.8 % (42.0-75.0) H 09/30/23 05:19 Lymph % (Auto) 11.8 % (21.0-51.0) L 09/30/23 05:19 [place] % (Auto) 10.3 % (0.0-13.0) 09/30/23 05:19 Eos % (Auto) 0.4 % (0.9-2.9) L 09/30/23 05:19 Baso % (Auto) 0.7 % (0.2-1.0) 09/30/23 05:19 Neut # (Auto) 8.4 x10^3/uL (2.2-4.8) H 09/30/23 05:19 Lymph # (Auto) 1.3 X10^3/uL (1.3-2.9) 09/30/23 05:19 [place] # (Auto) 1.1 x10^3/uL (0.3-0.8) H 09/30/23 05:19 Eos # (Auto) 0.0 x10^3/uL (0.0-0.2) 09/30/23 05:19 Baso # (Auto) 0.1 X10^3/uL (0.0-0.1) 09/30/23 05:19 Absolute Nucleated RBC 0.3 /100WBC 09/30/23 05:19 PT 18.7 SECONDS (11.8-14.3) 09/30/23 10:23 INR Target Range - 09/30/23 10:23 INR 1.59 (0.8-1.3) H 09/30/23 10:23 Sodium 134 mmol/L (136-145) L 09/30/23 05:19 Corrected Sodium TNP 09/30/23 05:19 Potassium 4.2 mmol/L (3.5-5.1) 09/30/23 05:19 Chloride 98 mmol/L (98-107) 09/30/23 05:19 Carbon Dioxide 26.1 mmol/L (21-32) 09/30/23 05:19 BUN 31 mg/dL (7-18) H 09/30/23 05:19 Creatinine 1.08 mg/dL (0.70-1.30) 09/30/23 05:19 Est GFR (MDRD) Af Amer > 60 (>60) 09/30/23 05:19 Est GFR (MDRD) Non-Af > 60 (>60) 09/30/23 05:19 Glucose 100 mg/dL (65-99) H 09/30/23 05:19 Calcium 8.7 mg/dL (8.5-10.1) 09/30/23 05:19 Corrected Calcium 10.4 mg/dL (8.5-10.1) H 09/30/23 05:19 Total Bilirubin 3.60 mg/dL (0.2-1.0) H 09/30/23 05:19 AST 341 Units/L (15-37) H 09/30/23 05:19 ALT 123 Units/L (12-78) H 09/30/23 05:19 Alkaline Phosphatase 634 Units/L (46-116) H 09/30/23 05:19 Ammonia 25 umol/L (11-32) 09/30/23 06:13 Total Protein 6.1 g/dL (6.4-8.2) L 09/30/23 05:19 Albumin 1.9 g/dL (3.4-5.0) L 09/30/23 05:19 Globulin 4.2 g/dL (2.5-4.5) 09/30/23 05:19 Albumin/Globulin Ratio 0.5 Ratio (1.1-2.1) L 09/30/23 05:19 Amylase 92 Units/L (25-115) 09/29/23 18:15 Lipase 153 Units/L (16-77) H 09/29/23 18:15 Total PSA 1.59 ng/mL (0.13-4.0) 09/30/23 10:23 Free T4 1.46 ng/dL (0.76-1.46) 09/30/23 05:35 TSH 3rd Generation 1.164 uIU/mL (0.358-3.74) 09/30/23 05:35 Specimen Type Catherized urine 09/29/23 19:04 Urine Color Ying (YELLOW) 09/29/23 19:04 Urine Appearance Clear (CLEAR) 09/29/23 19:04 Urine pH 6.0 (5.0 - 8.0) 09/29/23 19:04 Ur Specific [place] 1.015 (1.000-1.030) 09/29/23 19:04 Urine Protein 1+ (NEGATIVE) 09/29/23 19:04 Urine Glucose (UA) Negative (NEGATIVE) 09/29/23 19:04 Urine Ketones Negative (NEGATIVE) 09/29/23 19:04 Urine Blood 1+ (NEGATIVE) 09/29/23 19:04 Urine Nitrite Negative (NEGATIVE) 09/29/23 19:04 Urine Bilirubin 2+ (NEGATIVE) 09/29/23 19:04 Urine Urobilinogen 2+ (NORMAL) 09/29/23 19:04 Ur Leukocyte Esterase Negative (NEGATIVE) 09/29/23 19:04 Urine RBC 0-2 /HPF (0-3) 09/29/23 19:04 Urine WBC 0-2 /HPF (0-5) 09/29/23 19:04 Ur Squamous Epith Cells Rare /HPF (NEGATIVE) 09/29/23 19:04 Ur Transition Epith Cell Few /HPF (NEGATIVE) 09/29/23 19:04 Amorphous Sediment Trace /HPF (NEGATIVE) 09/29/23 19:04 Urine Bacteria Trace /HPF (NEGATIVE) 09/29/23 19:04 Hyaline Casts Rare /LPF (NEGATIVE) 09/29/23 19:04 Ur Culture Indicated? No/not indicated 09/29/23 19:04 Review of Systems Constitutional: Weakness and Malaise Eyes: No Symptoms Reported ENT: No Symptoms Reported Respiratory: Shortness of Breath Cardiovascular: Edema Gastrointestinal: Nausea, Vomiting, Abdominal Pain and Diarrhea Genitourinary: No Symptoms Reported Musculoskeletal: Back Pain Skin: Bruising Neurological: Weakness and Confusion (transient ) Physical Exam Vital Signs: Vital Signs Temperature 97.9 F Pulse Rate [Left Brachial] 96 Respiratory Rate 18 Blood Pressure [Left Arm] 108/54 O2 Sat by Pulse Oximetry 96 Oriented: Normal (slower to respond, but accurate response) Eyes: Other (jaundice sclera ) Ear: Normal Nose: Normal Throat: Dry Respiratory: Diminished Throughout Cardiovascular: Normal Auscultation: Bowel Sounds: Decreased Palpation: Liver Enlarged Tenderness: Diffuse Skin: Decreased Turgur Musculoskeletal: Back:Thoracic and Back:Lumbar Mood Description: Flat Affect: Depressed Speech Pattern: Appropriate and Delayed Assessment/Plan (1) Liver failure: Narrative Support Text: ADMIT, GENTLE IV HYDRATION WITH I&OS CT ABD PELVIS ON ADMISSION IN ER CT CHEST WITH CONTRAST ORDERED FOR TODAY CT HEAD, AMMONIA LEVEL PSA, TSH AND FREE T4 FLP PT/INR ADDED TO LABS PAIN AND NAUSEA CONTROL PRN VERIFY HOME MEDICATION DISCUSSED NH PLACEMENT DUE TO AFTT Status: Acute (2) Metastasis to liver: Status: Acute (3) COPD exacerbation: Status: Acute (4) Hypokalemia: Status: Acute (5) UTI (urinary tract infection): Qualifiers: Hematuria presence: with hematuria Urinary tract infection type: acute cystitis Qualified Code(s): N30.01 - Acute cystitis with hematuria Status: Acute (6) Confusion: Status: Acute (7) Abdominal pain: Status: Acute (8) Weakness: Status: Acute
--- NOTE | 2023-09-30 13:03 | CT ---
EXAM: CT HEAD WITHOUT CONTRAST HISTORY: confusion, ro cva, met disease; hx: smoker, liver mets, heart disease, liver cancer, asthma sx: brain sx, appendectomy, skin cancer sx COMPARISON: None. TECHNIQUE: Axial CT images were obtained through the brain without contrast. All CT scans at this facility use dose modulation, iterative reconstruction, and/or weight based dosi ng when appropriate to reduce radiation dose to as low as reasonably achievable. FINDINGS: BRAIN: There is diffuse cerebral atrophy and diffuse microangiopathic change noted. There is a mass in the right yoder radiata measuring a proximally 1.7 cm which contains dense calcifications. No cl ear evidence of hemorrhage. No intra or extra-axial fluid collections. Hypodense area in the left p ons noted possibly from previous infarct. Diffuse cerebellar atrophy. CALVARIUM: Normal ADDITIONAL FINDINGS: Mucosal thickening right maxillary sinus IMPRESSION: Evidence of acute infarct or hemorrhage. Diffuse cerebral atrophy and microangiopathic changes. Partially calcified round mass right yoder radiata measures 1.7 cm. Correlation with MRI with and w ithout gadolinium may be considered to further evaluate. Likely previous left pontine infarct with encephalomalacia. THIS IS AN ELECTRONICALLY VERIFIED FINAL REPORT 09/30/2023 12:59 PM - Electronically signed by Selvin Newberry MD
--- NOTE | 2023-09-30 13:05 | CT ---
EXAM: CT CHEST WITH CONTRAST HISTORY: pneumonia ; sx- brain, appendectomy, smoker, liver mets, heart disease, asthma COMPARISON: None. TECHNIQUE: Axial CT images were obtained through the chest after the intravenous administration of contrast. Cor onal reformatted images were included. Informed written consent was obtained prior to contrast administration. All CT scans at this facility use dose modulation, iterative reconstruction, and/or weight based dosi ng when appropriate to reduce radiation dose to as low as reasonably achievable. FINDINGS: SUPPORT DEVICES: None HEART, VESSELS, AND MEDIASTINUM: Within normal limits. LYMPH NODES: Multiple abnormal mediastinal lymph nodes are noted including multiple prevascular nodes . Substernal prevascular node measuring 2.3 x 1.9 cm on image 21. Large prevascular/AP window node measuring 4.4 x 2.9 cm on image 26. LUNGS AND PLEURA: There is a left upper lobe perihilar mass detected measuring 3.6 x 2.2 cm. Left ba silar atelectasis. AIRWAYS: Within normal limits. UPPER ABDOMEN: Liver demonstrates heterogeneity with surface nodularity and multiple low-density lesi ons worrisome for metastatic disease BONES: Within normal limits. IMPRESSION: Findings highly suspicious for primary lung neoplasm. Left upper lobe mass is noted as well as exten sive hilar and prevascular lymphadenopathy. Pulmonary consultation is suggested. Liver is abnormal demonstrating heterogeneous appearance with multiple low-density lesions concerning for metastatic disease. Evaluation with MRI of the abdomen with and without gadolinium may be consi dered. Patient may benefit from PET-CT. THIS IS AN ELECTRONICALLY VERIFIED FINAL REPORT 09/30/2023 1:01 PM - Electronically signed by Selvin Newberry MD
[2023-09-30 14:19] VITALS: BMI 28.5
[2023-09-30] MEDS: NICOTINE PATCH TD SCH (18:01)
[2023-09-30] MEDS: LIPITOR TAB 80 MG PO SCH (20:16)
[2023-09-30] MEDS: CHECK PATCH XX SCH (20:20)
[2023-09-30] MEDS ORDERED: LIPITOR TAB 80 MG PO SCH (21:00)
[2023-10-01 06:41] LABS: BASOPHILS # (AUTO) 0.1 X10^3/uL (0.0-0.1); BASOPHILS % (AUTO) 0.6 % (0.2-1.0); EOSINOPHILS % (AUTO) 0.2 % (0.9-2.9); HEMATOCRIT 33.9 % (42.0-54.0); HEMOGLOBIN 11.1 g/dL (13.5-18.0); LYMPHOCYTES # (AUTO) 1.4 X10^3/uL (1.3-2.9); LYMPHOCYTES % (AUTO) 10.3 % (21.0-51.0); MEAN CORPUSCULAR HEMOGLOBIN 26.7 pg (27.0-34.0); MEAN CORPUSCULAR HGB CONC 32.8 g/dL (33.0-35.0); MEAN CORPUSCULAR VOLUME 81.4 fL (80.0-100.0); MEAN PLATELET VOLUME 8.6 fL (7.4-11.0); MONOCYTES % (AUTO) 7.5 % (0.0-13.0); NEUTROPHILS % (AUTO) 81.4 % (42.0-75.0); PLATELET COUNT 215 X10^3/uL (150.0-450.0); RED BLOOD COUNT 4.17 X10^6/uL (4.7-6.0); RED CELL DISTRIBUTION WIDTH 16.7 % (11.6-16.5); WHITE BLOOD COUNT 13.5 X10^3/uL (3.6-10.0)
[2023-10-01 06:46] LABS: ALANINE AMINOTRANSFERASE 123 Units/L (12-78); ALBUMIN 1.9 g/dL (3.4-5.0); ALKALINE PHOSPHATASE 667 Units/L (46-116); ASPARTATE AMINO TRANSFERASE 361 Units/L (15-37); BLOOD UREA NITROGEN 34 mg/dL (7-18); CALCIUM 8.8 mg/dL (8.5-10.1); CARBON DIOXIDE 23.6 mmol/L (21-32); CHLORIDE 100 mmol/L (98-107); CHOL/HDL RATIO 6.1 (0.0-5.0); CHOLESTEROL 73 mg/dL (0-200); COR CA(FOR HYPOALB) 10.5 mg/dL (8.5-10.1); COR NA(FOR HYPERGLY) 136 mmol/L (136-145); CREATININE 1.17 mg/dL (0.70-1.30); GLUCOSE 125 mg/dL (65-99); HDL CHOLESTEROL 12 mg/dL (40-60); POTASSIUM 4.2 mmol/L (3.5-5.1); SODIUM 135 mmol/L (136-145); TOTAL PROTEIN 6.1 g/dL (6.4-8.2); TRIGLYCERIDES 122 mg/dL (0-150); eGFR NON BLACK RACES > 60 (>60)
[2023-10-01] MEDS ORDERED: LEXAPRO ONE (09:02)
[2023-10-01] MEDS ORDERED: BUTT CREAM (COMPOUND) ONE (12:15)
[2023-10-01] MEDS ORDERED: NYSTATIN POWDER TOP PRN (21:48)
[2023-10-02] MEDS: PROTONIX INJ 40 MG VIAL IVP SCH (02:02)
[2023-10-02] MEDS: ZOFRAN INJ 4 MG VIAL IVP PRN (02:09)
[2023-10-02 02:10] LABS: BASOPHILS # (AUTO) 0.1 X10^3/uL (0.0-0.1); BASOPHILS % (AUTO) 0.6 % (0.2-1.0); EOSINOPHILS % (AUTO) 0.1 % (0.9-2.9); HEMATOCRIT 32.9 % (42.0-54.0); HEMOGLOBIN 10.7 g/dL (13.5-18.0); LYMPHOCYTES % (AUTO) 10.6 % (21.0-51.0); MEAN CORPUSCULAR HEMOGLOBIN 26.5 pg (27.0-34.0); MEAN CORPUSCULAR HGB CONC 32.6 g/dL (33.0-35.0); MEAN CORPUSCULAR VOLUME 81.1 fL (80.0-100.0); MEAN PLATELET VOLUME 8.4 fL (7.4-11.0); MONOCYTES # (AUTO) 1.1 x10^3/uL (0.3-0.8); MONOCYTES % (AUTO) 5.9 % (0.0-13.0); NEUTROPHILS # (AUTO) 15.7 x10^3/uL (2.2-4.8); NEUTROPHILS % (AUTO) 82.8 % (42.0-75.0); PLATELET COUNT 233 X10^3/uL (150.0-450.0); RED BLOOD COUNT 4.06 X10^6/uL (4.7-6.0); WHITE BLOOD COUNT 18.9 X10^3/uL (3.6-10.0)
[2023-10-02 02:18] LABS: ALANINE AMINOTRANSFERASE 123 Units/L (12-78); ALBUMIN 1.9 g/dL (3.4-5.0); ALKALINE PHOSPHATASE 653 Units/L (46-116); ASPARTATE AMINO TRANSFERASE 353 Units/L (15-37); BLOOD UREA NITROGEN 39 mg/dL (7-18); CALCIUM 8.8 mg/dL (8.5-10.1); CHLORIDE 104 mmol/L (98-107); COR CA(FOR HYPOALB) 10.5 mg/dL (8.5-10.1); COR NA(FOR HYPERGLY) 140 mmol/L (136-145); CREATININE 1.36 mg/dL (0.70-1.30); GLUCOSE 132 mg/dL (65-99); POTASSIUM 3.9 mmol/L (3.5-5.1); SODIUM 139 mmol/L (136-145); TOTAL PROTEIN 6.1 g/dL (6.4-8.2); eGFR NON BLACK RACES 56 (>60)
[2023-10-02] MEDS: LEXAPRO ONE (10:18)
[2023-10-02] MEDS: BUTT CREAM (COMPOUND) TOP PRN (10:18)
[2023-10-03 05:43] LABS: BASOPHILS % (AUTO) 0.3 % (0.2-1.0); EOSINOPHILS % (AUTO) 0.1 % (0.9-2.9); HEMATOCRIT 33.2 % (42.0-54.0); HEMOGLOBIN 10.7 g/dL (13.5-18.0); LYMPHOCYTES % (AUTO) 6.2 % (21.0-51.0); MEAN CORPUSCULAR HEMOGLOBIN 26.3 pg (27.0-34.0); MEAN CORPUSCULAR HGB CONC 32.2 g/dL (33.0-35.0); MEAN CORPUSCULAR VOLUME 81.6 fL (80.0-100.0); MEAN PLATELET VOLUME 8.6 fL (7.4-11.0); MONOCYTES # (AUTO) 1.2 x10^3/uL (0.3-0.8); MONOCYTES % (AUTO) 7.5 % (0.0-13.0); NEUTROPHILS # (AUTO) 13.2 x10^3/uL (2.2-4.8); NEUTROPHILS % (AUTO) 85.9 % (42.0-75.0); PLATELET COUNT 210 X10^3/uL (150.0-450.0); RED BLOOD COUNT 4.06 X10^6/uL (4.7-6.0); RED CELL DISTRIBUTION WIDTH 17.2 % (11.6-16.5); WHITE BLOOD COUNT 15.4 X10^3/uL (3.6-10.0)
[2023-10-03 06:07] LABS: ALBUMIN 1.9 g/dL (3.4-5.0); CALCIUM 8.7 mg/dL (8.5-10.1); CARBON DIOXIDE 22.5 mmol/L (21-32); COR CA(FOR HYPOALB) 10.4 mg/dL (8.5-10.1); CREATININE 1.76 mg/dL (0.70-1.30); POTASSIUM 3.9 mmol/L (3.5-5.1)
[2023-10-03 09:16] VITALS: O2SAT 92
[2023-10-03 09:49] VITALS: PULSE 118
[2023-10-03] MEDS: LEXAPRO ONE (09:49)
[2023-10-03 12:39] VITALS: BP 106/56; RESP 22; TEMP 97.4
--- NOTE | 2023-10-04 17:57 | PCM.PROG ---
Progress Note Progress Note for Day of Date of Exam: 10/01/23 Subjective Subjective: This is a 68-year-old white male who was an ER admission on 09/30/23. The patient has liver failure due to metastatic liver disease. A CT of the lungs and brain obtained revealed the patient has probably primary lung cancer with metastatic brain disease also. He has a mass that was identified on CT. He has had very gentle IV hydration, as well as some supplemental O2 and respiratory therapy. Morning labs: hgb 11.1, wbc 13.5, bun 34/creatinine 1.17, Bilirubin 4.7, AST 362, ALT 123, Alk phos 667. He has had some improvement in his weakness and altered mental status. Family has been contacted regarding results of patients status and they have agreed for hospice house placement. A hospice consult has been put in. We discussed this with Case Management. Past Medical Family Social History Allergies: Allergies morphine Allergy (Unknown, Verified 09/22/23 15:13) Sulfa (Sulfonamide Antibiotics) [SULFA] Allergy (Unknown, Verified 09/22/23 15:13) Vital Signs and I&O's Intake and Output: Intake & Output 10/02/23 10/03/23 10/04/23 10/05/23 11:59 11:59 11:59 11:59 Intake Total 1830 Balance 1830 Physical Exam Oriented: Normal (slower to respond, but accurate response) Eyes: Other (jaundice sclera ) Ear: Normal Nose: Normal Throat: Dry Respiratory: Diminished Cardiovascular: Normal Auscultation: Bowel Sounds: Decreased Tenderness: Diffuse Skin: Decreased Turgur Musculoskeletal: Back:Thoracic and Back:Lumbar Mood Description: Flat Affect: Depressed Speech Pattern: Clear and Delayed Laboratory and Diagnostics 10/03/23 04:56 10/03/23 04:56 Labs: 09/30/23 12:00 Urine,Clean Catch Urine Culture - Final Laboratory WBC 15.4 X10^3/uL (3.6-10.0) H 10/03/23 04:56 RBC 4.06 X10^6/uL (4.7-6.0) L 10/03/23 04:56 Hgb 10.7 g/dL (13.5-18.0) L 10/03/23 04:56 Hct 33.2 % (42.0-54.0) L 10/03/23 04:56 MCV 81.6 fL (80.0-100.0) 10/03/23 04:56 MCH 26.3 pg (27.0-34.0) L 10/03/23 04:56 MCHC 32.2 g/dL (33.0-35.0) L 10/03/23 04:56 RDW 17.2 % (11.6-16.5) H 10/03/23 04:56 Plt Count 210 X10^3/uL (150.0-450.0) 10/03/23 04:56 MPV 8.6 fL (7.4-11.0) 10/03/23 04:56 Neut % (Auto) 85.9 % (42.0-75.0) H 10/03/23 04:56 Lymph % (Auto) 6.2 % (21.0-51.0) L 10/03/23 04:56 [place] % (Auto) 7.5 % (0.0-13.0) 10/03/23 04:56 Eos % (Auto) 0.1 % (0.9-2.9) L 10/03/23 04:56 Baso % (Auto) 0.3 % (0.2-1.0) 10/03/23 04:56 Neut # (Auto) 13.2 x10^3/uL (2.2-4.8) H 10/03/23 04:56 Lymph # (Auto) 1.0 X10^3/uL (1.3-2.9) L 10/03/23 04:56 [place] # (Auto) 1.2 x10^3/uL (0.3-0.8) H 10/03/23 04:56 Eos # (Auto) 0.0 x10^3/uL (0.0-0.2) 10/03/23 04:56 Baso # (Auto) 0.0 X10^3/uL (0.0-0.1) 10/03/23 04:56 Absolute Nucleated RBC 0.6 /100WBC 10/03/23 04:56 PT 18.7 SECONDS (11.8-14.3) 09/30/23 10:23 INR Target Range - 09/30/23 10:23 INR 1.59 (0.8-1.3) H 09/30/23 10:23 Sodium 145 mmol/L (136-145) 10/03/23 04:56 Corrected Sodium 146 mmol/L (136-145) H 10/03/23 04:56 Potassium 3.9 mmol/L (3.5-5.1) 10/03/23 04:56 Chloride 109 mmol/L (98-107) H 10/03/23 04:56 Carbon Dioxide 22.5 mmol/L (21-32) 10/03/23 04:56 BUN 46 mg/dL (7-18) H 10/03/23 04:56 Creatinine 1.76 mg/dL (0.70-1.30) H 10/03/23 04:56 Est GFR (MDRD) Af Amer 50 (>60) L 10/03/23 04:56 Est GFR (MDRD) Non-Af 41 (>60) L 10/03/23 04:56 Glucose 121 mg/dL (65-99) H 10/03/23 04:56 Calcium 8.7 mg/dL (8.5-10.1) 10/03/23 04:56 Corrected Calcium 10.4 mg/dL (8.5-10.1) H 10/03/23 04:56 Total Bilirubin 6.40 mg/dL (0.2-1.0) H 10/03/23 04:56 AST 332 Units/L (15-37) H 10/03/23 04:56 ALT 121 Units/L (12-78) H 10/03/23 04:56 Alkaline Phosphatase 611 Units/L (46-116) H 10/03/23 04:56 Ammonia 25 umol/L (11-32) 09/30/23 06:13 Total Protein 6.0 g/dL (6.4-8.2) L 10/03/23 04:56 Albumin 1.9 g/dL (3.4-5.0) L 10/03/23 04:56 Globulin 4.1 g/dL (2.5-4.5) 10/03/23 04:56 Albumin/Globulin Ratio 0.5 Ratio (1.1-2.1) L 10/03/23 04:56 Triglycerides 122 mg/dL (0-150) 10/01/23 05:55 Cholesterol 73 mg/dL (0-200) 10/01/23 05:55 LDL Cholesterol, Calc 37 mg/dL (0-100) 10/01/23 05:55 HDL Cholesterol 12 mg/dL (40-60) L 10/01/23 05:55 Cholesterol/HDL Ratio 6.1 (0.0-5.0) H 10/01/23 05:55 Amylase 92 Units/L (25-115) 09/29/23 18:15 Lipase 153 Units/L (16-77) H 09/29/23 18:15 Total PSA 1.59 ng/mL (0.13-4.0) 09/30/23 10:23 Free T4 1.46 ng/dL (0.76-1.46) 09/30/23 05:35 TSH 3rd Generation 1.164 uIU/mL (0.358-3.74) 09/30/23 05:35 Specimen Type Catherized urine 09/29/23 19:04 Urine Color Ying (YELLOW) 09/29/23 19:04 Urine Appearance Clear (CLEAR) 09/29/23 19:04 Urine pH 6.0 (5.0 - 8.0) 09/29/23 19:04 Ur Specific [place] 1.015 (1.000-1.030) 09/29/23 19:04 Urine Protein 1+ (NEGATIVE) 09/29/23 19:04 Urine Glucose (UA) Negative (NEGATIVE) 09/29/23 19:04 Urine Ketones Negative (NEGATIVE) 09/29/23 19:04 Urine Blood 1+ (NEGATIVE) 09/29/23 19:04 Urine Nitrite Negative (NEGATIVE) 09/29/23 19:04 Urine Bilirubin 2+ (NEGATIVE) 09/29/23 19:04 Urine Urobilinogen 2+ (NORMAL) 09/29/23 19:04 Ur Leukocyte Esterase Negative (NEGATIVE) 09/29/23 19:04 Urine RBC 0-2 /HPF (0-3) 09/29/23 19:04 Urine WBC 0-2 /HPF (0-5) 09/29/23 19:04 Ur Squamous Epith Cells Rare /HPF (NEGATIVE) 09/29/23 19:04 Ur Transition Epith Cell Few /HPF (NEGATIVE) 09/29/23 19:04 Amorphous Sediment Trace /HPF (NEGATIVE) 09/29/23 19:04 Urine Bacteria Trace /HPF (NEGATIVE) 09/29/23 19:04 Hyaline Casts Rare /LPF (NEGATIVE) 09/29/23 19:04 Ur Culture Indicated? No/not indicated 09/29/23 19:04 Stl Occult Blood (IFOB) Positive (NEGATIVE) A 10/01/23 06:33 Plan (1) Liver failure: Status: Acute Plan: Continue comfort care, gentle hydration. Plan for hospice placement. (2) Metastasis to liver: Status: Acute (3) COPD exacerbation: Status: Acute (4) Hypokalemia: Status: Acute (5) UTI (urinary tract infection): Status: Acute Qualifiers: Hematuria presence: with hematuria Urinary tract infection type: acute cystitis Qualified Code(s): N30.01 - Acute cystitis with hematuria (6) Confusion: Status: Acute (7) Abdominal pain: Status: Acute (8) Weakness: Status: Acute
== END 2023-10-03 12:55 | disposition hospice, inpatient (51) | DRG 640 ==
LOC: SUPCPDRO → ER 17:00 → MED/SURG 17:00
PROVIDERS: ADMIT Internal Medicine; ATTEND Internal Medicine
DX: E78.5 Hyperlipidemia, unspecified; I25.10 Atherosclerotic heart disease of native coronary artery without angina pectoris; C34.90 Malignant neoplasm of unspecified part of unspecified bronchus or lung; E87.6 Hypokalemia; R10.84 Generalized abdominal pain; E86.0 Dehydration; C79.31 Secondary malignant neoplasm of brain; C78.7 Secondary malignant neoplasm of liver and intrahepatic bile duct; K72.00 Acute and subacute hepatic failure without coma; K21.9 Gastro-esophageal reflux disease without esophagitis; R53.1 Weakness; K92.1 Melena; Z86.73 Personal history of transient ischemic attack (TIA), and cerebral infarction without residual deficits; N30.01 Acute cystitis with hematuria; J44.1 Chronic obstructive pulmonary disease with (acute) exacerbation; R41.0 Disorientation, unspecified; R79.1 Abnormal coagulation profile; E88.A Wasting disease (syndrome) due to underlying condition